=== PATIENT | female | born 1980 | race Two or more races ===

== ENCOUNTER 2025-04-30 08:47 | Outpatient (CLI) | payer OTHER, SELFPAY ==
--- OUTSIDE RECORDS SUMMARY | 2025-03-12 13:00 | XMS_ITS | Encounter Summary ---
Author Organization [facility] Address [address] [place] [address] Care Team Providers Care Signal Person Name Role Phone System, Provider Not In MD Primary Care Provider Unavailable Reason for Referral * Imaging (Routine) - Authorized Specialty Diagnoses / Procedures Referred By Ricardo t Referred To Contact Cardiology Diagnoses Broncholithiasis Procedures Echo, Adult Stress Test Beto Garner MD [address] [place] [address] Phone: tel: fax: Referral ID Status Reason Start Date Expiration Date Visits Requested Visits Authorized [id number] Authorized Perform Procedure 03/12/2025 09/11/2026 1 1 Reason for Visit * Reason Comments Follow-up Encounter Details Date Type Department Care Team (Latest Contact Info) Description 03/12/2025 1:00 PM EDT Office Visit [facility] [address] [place] [address] Beto Garner MD [address] [place] [address] Broncholithiasis (Primary Dx) Social History Tobacco Use Types Packs/Day Years Used Date Smoking Tobacco: Never Smokeless Tobacco: Never Alcohol Use Standard Drinks/Week Comments Not Currently 0 (1 standard drink = 0.6 oz pur e alcohol) PHQ-2 Answer Date Recorded Patient Health Questionnaire-2 Score 0 12/15/2024 AUDIT-C Answer Date Recorded Q1: How often do you have a drink containing alcohol? Never 03/12/2025 Q2: How many drinks containi ng alcohol do you have on a typical day when you are drinking? Patient does not drink Q3: How often do you have si x or more drinks on one occasion? Never 03/12/2025 Comments No Sex and Gender Information Value Date Recorded Sex Assigned at Not on file Legal Sex Female 11:49 AM EDT Gender Identity Not on file Sexual Orientation Not on file documented as of this encounter Last Filed Vital Signs Vital Sign Reading Time Taken Comments Blood Pressure 139/111 03/12/2025 12:53 PM EDT Provider informed Pulse 117 03/12/2025 12:47 PM EDT Temperature 36.8 C (98.3 F) 03/12/2025 12:47 PM EDT Respiratory Rate 16 03/12/2025 12:4 7 PM EDT Oxygen Saturation 96% 03/12/2025 12: 47 PM EDT Inhaled Oxygen Concentration - - Weight 97.2 kg (214 lb 4.6 oz) 03/12/2025 12:47 PM EDT Height 154.9 cm (5' 0.98 ) 03/12/2025 1 2:47 PM EDT Body Mass Index 40.51 03/12/2025 12:47 PM EDT documented in this encounter Functional Status * AUDIT-C Score Answer Date of Assessment Author 0 03/12/2025 12:44 PM EDT Consuelo Borges * Question Answer Date of Assessment Author Q1: How often do you have a drink containing alcohol? Never 03/12/2025 12:44 PM EDT Consuelo Borges Q2: How many drinks containing alcohol do you have on a typical day when you are drinking? Patient does not drink 03/12/2025 12:44 PM EDT Consuelo Borges Q3: How often do you have six or more drinks on one occasion? Never 03/12/2025 12:44 PM EDT Consuelo Borges documented as of this encounter Miscellaneous Notes * Progress Notes - Beto Garner MD - 03/12/2025 1:00 PM EDT Images from the original note were not included. HEAD, NECK[facility]ATORY [facility] Chief Complaint Bronchiolith History Of Present Illness Alek Hart is a 44 y.o. female nonsmoker who has a history of broncholithiasis that is compressing the right mainstem causing almost on 90% obstruction of the right mainstem status post 10 x 20 andressa stent placement on 12/31/2024 with significant improvement in breathing but she continues to compl ain of cough and mucus. With the thought of possibly removing the broncholith we consulted the thoracic surgeons at [facility] we did not feel the removal of the broncholith would be possible surgically. For 2nd opinion she went to the emergency room at [facility] was admitted thoracic surgery saw the patient Interventional Pulmonary bronch the patient. The recommendation was ifthey were to do surgery they would leave a rent in the right mainstem that could be a major issue thus surgery was not recommended. The pulmonary function test post stent in the right mainstem shows no evidence of obstruction FEV1 2.73 (96%). [facility] bronch: Dr Aguilar. Thoracis surgery recommendation [facility] Given location of the calcifications, surgical resection may result in defect in the right main stem bronchus. Would recommend further evaluation by interventional pulmonology for less invasive interventions to address the bronchial stenosis. Past Medical History She has a past medical history of Asthma, History of sinus problem, HTN (hypertension), Limited mobility, Lung abnormality, Migraines, Shortness of breath, and Sleep concern. She has no past medical history of Malignant hyperthermia. Surgical History She has a past surgical history that includes Cholecystectomy. Family History Family History[1] Social History She reports that she has never smoked. She has never used smokeless tobacco. She reports that she does not currently use alcohol. She reports that she does not use drugs. Review of Systems: Complete 14 point review of systems is negative except for positives documented in HPI Allergies Clonidine Home Medications Current Medications[2] Medications Ordered Prior to Encounter[3] Medications Current Scheduled Medications[4] Current Continuous Medications[5] Current PRN Medications[6] Physical Exam GENERAL: not in distress EYES: anicteric sclerae, moist conjunctivae; no lid-lag; PERRLA HENT: Atraumatic; oropharynx clear with moist mucous membranes and no mucosal ulcerations; normal hard and soft palate NECK: Trachea midline; Neck is supple, no thyromegaly or lymphadenopathy . RESP: Airway patent, good air movement, respirations non labored. Breath sounds clear to auscultation. No wheezing. CARD: RRR, without murmur, rubs, or gallop Extremities: No edema, cyanosis or clubbing. Pulses palpable +2. GI: No organomegaly or masses. Abdomen is soft, nontender and nondistended. BS present x 4 quadrants SKIN: Normal temperature, turgor and texture; no rash, ulcers or subcutaneous nodules NEURO: Aaox3 Last Recorded Vitals Blood pressure (!) 139/111, pulse (!) 117, temperature 36.8 ??C (98.3 ??F), temperature source Oral, resp. rate 16, height 1.549 m (5' 0.98 ), weight 97.2 kg (214 lb 4.6 oz), SpO2 96%. Results Radiology I reviewed the images myself to plan a procdedure. CT chest 02/28/25 [facility]: CT chest 02/23/2025 Pulmonary Arteries/Vessels: No pulmonary embolism. Right Heart Strain: No evidence of right heart strain. Pleural/Pericardial space: No pneumothorax. No pleural effusions. No pericardial effusion. Lymph Nodes: No lymphadenopathy within the chest. Lungs: Right main bronchus stent in place and patent. Redemonstration of multiple calcified right hilar lymph nodes. No airspace disease or major atelectasis Mediastinum: Otherwise unremarkable. Chest wall: No chest wall hematoma or contusion. Bones: No acute fracture within the chest. Upper Abdomen: Limited imaging of the upper abdomen is unremarkable. IMPRESSION: No pulmonary embolism. UMM stent. Assessment and Plan Alek Hart is a 44 y.o. female nonsmoker with a history of broncholithiasis causing right mainstem bronchial stenosis status post andressa 10 x 20 mm stent placement in December of 2024 After long discussion we came to a conclusion that we would remove the current stent in the right mainstem, as he thinks the stent is causing more symptoms such as fatigue weakness coughing phlegm thick mucus with small amounts of hemoptysis and more so chest pain which she thinks is debilitating. Describes it as elephant sitting on her chest. We will order her a pharmacological stress echocardiogram. To rule out cardiac cause. After the stent is removed if she becomes significantly short of breath the patient knows to call us and in that case we will decide a 3D printed stent and place it with the help over rigid bronchoscope. Spirometry after the stent is removed. Explained to her the silicone 3 D stent may fit better and not contribute as much to phlegm, hemoptysis and pain. She wants the stone removed surgically and is willing to take any amount of risk, however two surgeons at [facility] and [facility] have said that surgery is not a viable option. I personally spent a total of approximately 60 minutes on this encounter. This time includes face to face with patient, spent reviewing pertinent medical/family/social history, performing physical exam, clinically evaluating, interpreting labs/imaging, ordering necessary studies (i.e. medication, tests, procedures) and counseling patient, and discussion and/or coordination of care. This does not include time spent with patient by nursing or clerical staff. [1] Family History Problem Relation Name Age of Onset Lung cancer Maternal Grandmother Brain cancer Maternal Grandmother Heartburn Other Hyperlipidemia Other Hypertension, benign Other Other (sinus problem) Other Stroke Other Tuberculosis Other [2] Current Outpatient Medications: acetylcysteine (Mucomyst) 20 % nebulizer solution, Take 4 mL by nebulization every 4 hours., Disp: 30 mL, Rfl: 11 albuterol (Proventil) (2.5 MG/3ML) 0.083% nebulizer solution, Take 3 mL by nebulization 2 times a day., Disp: 180 mL, Rfl: 11 albuterol 108 (90 Base) MCG/ACT inhaler, Inhale 2 puffs every 4 hours by inhalation route for 30 days. (Patient taking differently: Inhale 2 puffs as needed for shortness of breath or wheezing.), Disp: , Rfl: amLODIPine (Norvasc) 5 MG tablet, Take 1 tablet by mouth daily., Disp: 30 tablet, Rfl: 0 Fjouxsu-Wajsdlitivo-Rrgcwsnref (BREZTRI AEROSPHERE IN), Inhale 2 times a day. (Patient taking differently: Inhale as needed.), Disp: , Rfl: guaiFENesin (Mucinex) 600 MG 12 hr tablet, Take 2 tablets by mouth 2 times a day. Do not crush, chew, or split., Disp: 120 tablet, Rfl: 11 norgestimate-ethinyl estradiol (Ortho Tri-Cyclen LO) 0.18/0.215/0.25 MG-25 MCG tablet, Take 1 tablet by mouth daily., Disp: , Rfl: sodium chloride 3 % nebulizer solution, Take 4 mL by nebulization 2 times a day., Disp: 240 mL, Rfl: 11 benzonatate (Tessalon Perles) 100 MG capsule, Take 1 capsule by mouth 3 times a day as needed for cough. Do not crush or chew. (Patient not taking: Reported on 03/12/2025), Disp: 30 capsule, Rfl: 0 budesonide-formoterol (Symbicort) 80-4.5 MCG/ACT inhaler, Inhale 2 puffs 2 times a day. Rinse mouthwith water after use to reduce aftertaste and incidence of candidiasis. Do not swallow. (Patient not taking: Reported on 03/12/2025), Disp: , Rfl: guaiFENesin-codeine (Robitussin-AC) 100-10 MG/5ML syrup, Take 10 mL by mouth every 4 hours as needed for cough. (Patient not taking: Reported on 03/12/2025), Disp: 240 mL, Rfl: 0 [3] Current Outpatient Medications on File Prior to Visit Medication Sig Dispense Refill acetylcysteine (Mucomyst) 20 % nebulizer solution Take 4 mL by nebulization every 4 hours. 30 mL 11 albuterol (Proventil) (2.5 MG/3ML) 0.083% nebulizer solution Take 3 mL by nebulization 2 times a day. 180 mL 11 albuterol 108 (90 Base) MCG/ACT inhaler Inhale 2 puffs every 4 hours by inhalation route for 30 days. (Patient taking differently: Inhale 2 puffs as needed for shortness of breath or wheezing.) amLODIPine (Norvasc) 5 MG tablet Take 1 tablet by mouth daily. 30 tablet 0 Rgqteve-Aeqleolkwya-Biyksffhmm (BREZTRI AEROSPHERE IN) Inhale 2 times a day. (Patient taking differently: Inhale as needed.) guaiFENesin (Mucinex) 600 MG 12 hr tablet Take 2 tablets by mouth 2 times a day. Do not crush, chew, or split. 120 tablet 11 norgestimate-ethinyl estradiol (Ortho Tri-Cyclen LO) 0.18/0.215/0.25 MG-25 MCG tablet Take 1 tabletby mouth daily. sodium chloride 3 % nebulizer solution Take 4 mL by nebulization 2 times a day. 240 mL 11 benzonatate (Tessalon Perles) 100 MG capsule Take 1 capsule by mouth 3 times a day as needed for cough. Do not crush or chew. (Patient not taking: Reported on 03/12/2025) 30 capsule 0 budesonide-formoterol (Symbicort) 80-4.5 MCG/ACT inhaler Inhale 2 puffs 2 times a day. Rinse mouth with water after use to reduce aftertaste and incidence of candidiasis. Do not swallow. (Patient nottaking: Reported on 03/12/2025) guaiFENesin-codeine (Robitussin-AC) 100-10 MG/5ML syrup Take 10 mL by mouth every 4 hours as neededfor cough. (Patient not taking: Reported on 03/12/2025) 240 mL 0 No current facility-administered medications on file prior to visit. [4] [5] [6] documented in this encounter Plan of Treatment Upcoming Encounters Date Type Department Care Team (Late st Contact Info) Description 05/04/2025 2:30 PM EDT Appointment Cardiac Imaging [address] [place] [address] Scheduled Orders Name Type Priority Associated Diagnoses Order Schedule Pulmonary function testing PFT Routine Broncholithiasis 1 Occurrences starting 03/12/2025 until 03/12/2026 Echo, Adult Stress Test Stress Echocardiography Routine Broncholithiasis Expected: 03/12/2025 (Approximate), Expires: 03/12/2026 documented as of this encounter Goals Goal Patient Goal Type Associated Problems Recent Progress Patient-Stated? Author Autogenerat ed Goal Care Plan Autogenerated Problem No Lorena Weber documented as of this encounter Visit Diagnoses Diagnosis Broncholithiasis- Primary Other diseases of lung, not elsewhere classified documented in this encounter Additional Health Concerns Active Problems Noted Date Diagnosed Date Autogenerated Problem 03/12/2025 Assessment Noted Time A fall risk assessment has been complete d for the patient 03/12/2025 12:44 PM EDT A Body Mass Index follow-up plan has been documented for the patient 02/13/2025 1:58 PM EDT documented as of this encounter Care Teams Signal Person Relationship Specialty Start Date End Date System, Provider Not In, MD [address] [place] [address] PCP - General Family Medicine 12/15/24 documented as of this encounter
--- OUTSIDE RECORDS SUMMARY | 2025-03-24 07:33 | XMS_ITS | Encounter Summary ---
Author Organization Healthcare Address [address] [id number] Care Team Providers Care Medical Physicist Name Role Phone System, Provider Not In MD Primary Care Provider Unavailable Reason for Referral * Imaging (Routine) - Closed Specialty Diagnoses / Procedures Referred By Ricardo iyer Referred To Contact Gastroenterology Diagnoses Broncholithiasis Procedures Bronchoscopy w Stent Removal, w Beto De Santiago MD [address] [place] [address] Phone: tel: fax: Referral ID Status Reason Start Date Expiration Date V isits Requested Visits Authorized [id number] Closed Specialty Services Required 03/12/2025 09/11/2026 1 1 Reason for Visit * Imaging (Routine) - Closed Specialty Diagnoses / Procedures Referred By Ricardo iyer Referred To Contact Gastroenterology Diagnoses Broncholithiasis Procedures Bronchoscopy w Stent Removal, w Beto De Santiago MD [address] [place] [address] Phone: tel: fax: Referral ID Status Reason Start Date Expiration Date V isits Requested Visits Authorized [id number] Closed Specialty Services Required 03/12/2025 09/11/2026 1 1 Encounter Details Date Type Department Care Team (Latest Contact Info) Description 03/24/2025 7:33 AM EDT - 03/24/2025 11:59 PM EDT Hospital Encounter [facility] [address] [place] [address] Beto Garner MD [address] [place] [address] Megan Tucker, RN Broncholithiasis Discharge Disposition: Home or Self Care Social History Tobacco Use Types Packs/Day Years [...] Sign Reading Time Taken Comments Blood Pressure 118/80 03/24/2025 12:30 PM EDT Pulse 75 03/24/2025 12:30 PM EDT Temperature 36.4 C (97.6 F) 03/24/2025 9:47 AM EDT Respiratory Rate 8 03/24/2025 12:30 PM EDT Oxygen Saturation 97% 03/24/2025 12:30 PM EDT Inhaled Oxygen Concentration - - Weight 97.3 kg (214 lb 8.1 oz) 03/24/2025 7:58 A M EDT Height 157.5 cm (5' 2 ) 03/24/2025 7:58 AM EDT Body Mass Index 39.23 03/24/2025 7:58 AM EDT documented in this encounter Medications at Time of Discharge amLODIPine (Norvasc) 5 MG tablet Take 1 tablet by mouth daily. 30 tablet 02/24/2025 acetylcysteine (Mucomyst) 20 % nebulizer solution Take 4 mL by nebulization every 4 hours. 30 mL 11 12/31/2024 albuterol (Proventil) (2.5 MG/3ML) 0.083% nebulizer solution Take 3 mL by nebulization 2 times a day. 180 mL 11 12/31/2024 albuterol 108 (90 Base) MCG/ACT inhalerIndicatio ns:Broncholithia sis,Subacute cough Inhale 2 puffs every 4 hours by inhalation route for 30 days. 11/24/2024 benzonatate (Tessalon Perles) 100 MG capsule Take 1 capsule by mouth 3 times a day as needed for cough. Do not crush or chew. 30 capsule 01/08/2025 Budeson-Glycopyr rol-Formoterol (BREZTRI AEROSPHERE IN)Indications:B roncholithiasis, Subacute cough Inhale 2 times a day. budesonide-formo terol (Symbicort) 80-4.5 MCG/ACT inhalerIndicatio ns:Broncholithia sis,Subacute cough Inhale 2 puffs 2 times a day. Rinse mouth with water after use to reduce aftertaste and incidence of candidiasis. Do not swallow. guaiFENesin (Mucinex) 600 MG 12 hr tablet Take 2 tablets by mouth 2 times a day. Do not crush, chew, or split. 120 tablet 11 12/31/2024 guaiFENesin-code ine (Robitussin-AC) 100-10 MG/5ML syrup Take 10 mL by mouth every 4 hours as needed for cough. 240 mL 12/16/2024 norgestimate-eth inyl estradiol (Ortho Tri-Cyclen LO) 0.18/0.215/0.25 MG-25 MCG tablet Take 1 tablet by mouth daily. sodium chloride 3 % nebulizer solution Take 4 mL by nebulization 2 times a day. 240 mL 11 12/31/2024 documented as of this encounter Miscellaneous Notes * H&P - Beto Garner MD - 03/24/2025 9:00 AM EDT Pre-procedure H&P Requesting Provider: Beto Garner MD Pre Procedure H and P 03/24/2025 Location: Endoscopy Brief H and P: Alek Hart is a 44 y.o. female with pmhx of severe persistent asthma on Trelegy, never smoker, recurrent bronchitis, chronic cough/sinusitis. We are seeing the patient as a consult, on the requestof Carly Piper NP for concern of bronchial obstruction. Since August has noted progressively worse dyspnea and cough. She is now unable to lie flat and dyspneic with walking only short distances and speaking. Last asthma exacerbation reuqiring steroids and abx was last week. currently on triple therapy for asthma treatment and pending restart of biologic. Denies fever, chills. Baseline cough, shortness of breath. Stable weight and appetite. She was exposed to TB in [place] to due maternal grandmother with TB. Grandmother also with hx of lung cancer. She is a never smoker. We performed a bronchoscopy on 12/31/24, there was no visible broncholith but there was granulation tissue and a stent was placed 10x20 mm andressa stent. She coughs a lot, but states her breathing is much better and is able to speak in full sentences. Has some frothy, white expectoration. Denies chest pain. . Past Medical History Past Medical History[1] 14 point ROS normal except:A comprehensive review of systems was negative. Medications: Prior to Admission medications Medication Sig Start Date End Date Taking? Authorizing Provider acetylcysteine (Mucomyst) 20 % nebulizer solution Take 4 mL by nebulization every 4 hours. 12/31/24 Tiffanie Aguilar MD albuterol (Proventil) (2.5 MG/3ML) 0.083% nebulizer solution Take 3 mL by nebulization 2 times a day. 12/31/24 Tiffanie Aguilar MD albuterol 108 (90 Base) MCG/ACT inhaler Inhale 2 puffs every 4 hours by inhalation route for 30 days. Patient taking differently: Inhale 2 puffs as needed for shortness of breath or wheezing. 11/24/24 Provider, Historical amLODIPine (Norvasc) 5 MG tablet Take 1 tablet by mouth daily. 02/24/25 Fausto Calderón, DO benzonatate (Tessalon Perles) 100 MG capsule Take 1 capsule by mouth 3 times a day as needed for cough. Do not crush or chew. Patient not taking: Reported on 03/12/2025 01/08/25 Beto Garner MD Ifmiyrl-Zqobhnxdikd-Ipdkmlckcz (BREZTRI AEROSPHERE IN) Inhale 2 times a day. Patient taking differently: Inhale as needed. Provider, Historical budesonide-formoterol (Symbicort) 80-4.5 MCG/ACT inhaler Inhale 2 puffs 2 times a day. Rinse mouth with water after use to reduce aftertaste and incidence of candidiasis. Do not swallow. Patient not taking: Reported on 03/12/2025 Provider, Historical guaiFENesin (Mucinex) 600 MG 12 hr tablet Take 2 tablets by mouth 2 times a day. Do not crush, chew, or split. 12/31/24 Tiffanie Aguilar MD guaiFENesin-codeine (Robitussin-AC) 100-10 MG/5ML syrup Take 10 mL by mouth every 4 hours as neededfor cough. Patient not taking: Reported on 03/12/2025 12/16/24 Beto Garner MD norgestimate-ethinyl estradiol (Ortho Tri-Cyclen LO) 0.18/0.215/0.25 MG-25 MCG tablet Take 1 tabletby mouth daily. Provider, Historical sodium chloride 3 % nebulizer solution Take 4 mL by nebulization 2 times a day. 12/31/24 Tiffanie Aguilar MD Anticoagulation/ASA: none Last dose: not applicable Allergies: Clonidine Social history: Reviewed and non contributory Family history: Reviewed and non contributory Results Coags: No results found for: INR , PT1 , APTT , HPRN , CLFGN CBC: WBC Count Date Value Ref Range Status 02/23/2025 15.08 (H) 3.70 - 10.30 10*3/uL Final HGB Date Value Ref Range Status 02/23/2025 13.6 11.2 - 15.7 g/dL Final HCT Date Value Ref Range Status 02/23/2025 40.5 34.0 - 45.0 % Final RBC Count Date Value Ref Range Status 02/23/2025 4.73 3.90 - 5.20 10*6/uL Final MCV Date Value Ref Range Status 02/23/2025 86 79 - 98 fL Final MCH Date Value Ref Range Status 02/23/2025 28.8 26.0 - 32.0 pg Final MCHC Date Value Ref Range Status 02/23/2025 33.6 30.7 - 35.5 g/dL Final RDW Date Value Ref Range Status 02/23/2025 13.4 11.5 - 14.5 % Final MPV Date Value Ref Range Status 02/23/2025 9.4 8.8 - 12.5 fL Final nRBC Date Value Ref Range Status 02/23/2025 0.0 <=0.0 per 100 WBCs Final Neutrophils % Date Value Ref Range Status 02/23/2025 69 % Final Lymphocytes % Date Value Ref Range Status 02/23/2025 28 % Final Monocytes % Date Value Ref Range Status 02/23/2025 3 % Final Eosinophils % Date Value Ref Range Status 02/23/2025 0 % Final Basophils % Date Value Ref Range Status 02/23/2025 0 % Final BMP: Sodium, Plasma Date Value Ref Range Status 02/23/2025 138 136 - 145 mmol/L Final Potassium, Plasma Date Value Ref Range Status 02/23/2025 3.8 3.6 - 4.9 mmol/L Final Chloride, Plasma Date Value Ref Range Status 02/23/2025 105 97 - 107 mmol/L Final BUN, Plasma Date Value Ref Range Status 02/23/2025 9 7 - 21 mg/dL Final CO2, Plasma Date Value Ref Range Status 02/23/2025 20 (L) 22 - 29 mmol/L Final Creatinine, Plasma Date Value Ref Range Status 02/23/2025 0.90 0.60 - 1.10 mg/dL Final Glucose, Plasma Date Value Ref Range Status 02/23/2025 102 (H) 74 - 99 mg/dL Final Last Recorded Vitals Visit Vitals OB Status Having periods Smoking Status Never Physical Exam GENERAL: not in distress EYES: anicteric sclerae, PERRLA HENT: Oropharynx clear with moist mucous membranes and no mucosal ulcerations NECK/Lymph: Trachea midline; No thyromegaly or lymphadenopathy . RESP: Good air movement, Breath sounds clear to auscultation. No wheezing. CARD: RRR, without murmur, rubs, or gallop Extremities: No edema, cyanosis or clubbing. GI: No organomegaly or masses. Abdomen is soft, nontender and nondistended. BS present x 4 quadrants SKIN: No rash, ulcers or subcutaneous nodules NEURO: Alert and oriented, moves all extremeties, reflexes present and symmetrical, no focal deficit Impression/indication for procedure: Alek Hart is a 44 y.o. female with a broncholith and significant narrowing of the UMM , no broncolith was visible but due to the narrowing we placed a ANDRESSA 10x20 mm stent. She is breathing betterbut has cough and frothy expectoration. [facility] for [facility] thoracic [facility] for removal [facility]olith[facility]. Due to coughing, and chest pain she would like to have the stent removed. We talked in length that she will become short of breath like before if the stent were to come out. She would like to have the stent removed and if she gets more short of breath we will plan on a silicone 3 D Y stent. Procedure to be performed: Bronchoscopy airway examination wash and stent removal Side: Right Consent: yes [1] Past Medical History: Diagnosis Date Asthma History of sinus problem HTN (hypertension) Limited mobility shortness of breath Lung abnormality Migraines Shortness of breath Sleep concern * Dell Rubalcava [facility] - 03/24/2025 8:16 AM EDT Images from the original note were not included. 61 After a Bronchoscopy Home care ? Getting home: We will give you a medicine that makes you sleepy. You may not drive or ride home alone. Someone must be with you until you get home. ? Driving: Do not drive or use dangerous equipment for 24 hours. ? Eating and drinking: Your throat will be numb after treatment. Do not eat or drink until the numbness goes away. This often takes ?? to 1 hours. ? Sore throat: Your throat may be sore or hoarse for the next day or 2. ? Fever: You may have a mild fever tonight. If your temp is over 100?F, you may take qsfq-gdl-pxweuay Tylenol. ? Blood in the mouth: For a few days, you may cough up a little blood or have a little blood in your spit. This is normal. Call 911 right away if you have any of the following ? Shortness of breath Call your doctor if you have any of the following These may be related to the treatment and need medical attention. If you do not tell your doctor, the problem may get worse. ? Sore throat for more than 24 hours ? Fever for more than 24 hours ? Coughing up blood - more than 2 tablespoons between now and tomorrow morning ? Pain in the chest ? Breathing problems Our contact information ? For Adult Pulmonary, call . Nights and weekends, call and ask for the finisher [employer] consumer affairs manager. ? For the Transplant Service, call . Nights and weekends, call . ? For Pediatric Pulmonary, call and ask for the pediatric attending consumer affairs manager. ? For Otolaryngology, call . Nights and weekends, call [phone] and ask for thesurgical resident consumer affairs manager. * Sydni Juarez - 03/24/2025 8:15 AM EDT Images from the original note were not included. [id number] Anesthesia: General Anesthesia You?re due to have surgery. During surgery, you?ll be given medicine called anesthesia or anesthetic. This will keep you comfortable and pain-free. Your anesthesia provider will use general anesthesia . You are watched continuously during your procedure by your anesthesia provider. What is general anesthesia? General anesthesia puts you into a state like deep sleep. It goes into the bloodstream (IV anesthetics), into the lungs (gas anesthetics),or both. You feel nothing during the procedure. You won't remember it either. During the procedure, the anesthesia provider monitors you continuously. They trackyour heart rate and rhythm, blood pressure, breathing, and blood oxygen. ? IV anesthetics. IV anesthetics are given through an IV (intravenous) line in your arm. They?re often given first. This is so you're asleep before a gas anesthetic is started. Some kinds of IV anesthetics ease pain. Others relax you. Your healthcare provider will decide which kind is best in your case. ? Gas anesthetics. Gas anesthetics are breathed into the lungs. They're often used to keep you asleep. They can be given through a face mask. Or they can be given through a tube placed in your voice box (larynx) or breathing tube (trachea). o Face mask. Your anesthesia provider will most likely place the face mask over your nose and mouthwhile you?re still awake. You?ll breathe oxygen through the mask as your IV anesthetic is started. Gas anesthetic may be added through the mask. o Tube in the larynx or trachea. The tube will be inserted into your throat after you?re asleep. Anesthesia tools and medicines You will likely have: ? IV anesthetics. These are put into an IV line into your bloodstream. ? Gas anesthetics. You breathe these anesthetics into your lungs. Then they pass into your bloodstream. ? Pulse oximeter. This is a small clip that's attached to the end of your finger. It measures your blood oxygen level. ? Electrocardiography leads (electrodes). These are small sticky pads that are placed on your chest. They record your heart rate and rhythm. ? Blood pressure cuff. This reads your blood pressure. Risks and possible complications General anesthesia has some risks. These include: ? Breathing problems ? Upset stomach (nausea) and vomiting ? Sore throat or hoarseness (usually temporary) ? Allergic reaction to the anesthetic ? Irregular heartbeat (rare) ? Cardiac arrest (rare) Anesthesia safety ? Follow any directions you're given for not eating or drinking before your procedure. ? Tell your healthcare provider what medicines you take. This includes prescription and vdst-abh-xwybole medicines. It also includes vitamins, herbs, and other supplements. You'll be asked when thosewere last taken. ? Have a trusted adult drive you home after the procedure. ? For the first 24 hours after your surgery: o Don't drive or use heavy equipment. o Don't make important decisions or sign legal documents. If important decisions or signing legal documents is necessary during the first 24 hours after surgery, have a trusted family member or spouse act on your behalf. o Don't drink alcohol. o Have a responsible adult stay with you. They can watch for problems and help keep you safe. Last Reviewed Date: 2023 00:00:00 ?? [id number] The [employer]. All rights reserved. This information is not intended as a substitute for professional medical care. Always follow your healthcare professional's instructions. documented in this encounter Plan of Treatment Upcoming Encounters Date Type Department Care Team (Late st Contact Info) Description 05/04/2025 2:30 PM EDT Appointment Cardiac Imaging [address] [place] [address] documented as of this encounter Goals Goal Patient Goal Type Associated Problems Recent Progress Patient-Stated? Author Autogenerat ed Goal Care Plan Autogenerated Problem No Lorena Weber documented as of this encounter Procedures Procedure Name Priority Date/Time Associated Diagnosis Comments BRONCHOSCOPY Routine 03/24/2025 9:38 AM EDT Broncholithiasis POCT , URINE Routine 03/24/2025 8:14 AM EDT documented in this encounter Results * Bronchoscopy w Stent Removal, w Flouro (03/24/2025 9:38 AM EDT) Anatomical Region Laterality Modality Endoscopy Narrative 03/24/2025 9:35 AM EDT Table formatting from the original result was not included. Indication Broncholithiasis causing extrinsic compression and narrowing of the UMM Preprocedure A history and physical has been performed, and patient medication allergies have been reviewed. The patient's tolerance of previous anesthesia has been reviewed. The risks and benefits of the procedure and the sedation options and risks were discussed with the patient. All questions were answered and informed consent obtained. Anesthesia/Sedation Medications See anesthesia record for anesthesia administered medications. Details of the Procedure The patient underwent general anesthesia, which was administered by an anesthesia professional. The patient's blood pressure, heart rate, level of consciousness, oxygen saturation, respirations and ETCO2 were monitored throughout the procedure. The patient experienced no blood loss. The scope was introduced through the endotracheal tube. The procedure was not difficult. The patient tolerated the procedure well. There were no apparent adverse events. Fluoroscopy time: 0 min, and 0 seconds. Findings The main mri and left lung appeared normal. Right side has a Andressa stent in good position, the lumen was 50 precent occluded with thick secretion which was removed with some effort. The RUL and the RBI were patent. Foreign body in the right main stem. The stent in the UMM was grasped with a forceps and removed easily. The UMM narrowed after removal of the stent. The lumen was 25 percent patent. Benign-appearing stenosis with greater than 75% obstruction in the right main stem; cre balloon dilated x2 from starting diameter 8 mm to an ending diameter of 10 mm and a length of 30 mm. Dilation resulted in an improvement. 51-75% obstruction remained after intervention. The balloon dilatation only temporarily keeps the airway open.. Specimens No specimens were documented in this log. Events Procedure Events Event Event Time ENDO SCOPE IN TIME 03/24/2025 9:07 AM ENDO SCOPE OUT TIME 03/24/2025 9:24 AM Staff Staff Role Megan Tucker, RN Endo Nurse Shira Lucero Endo Computer Engineer Naila Perla, HEAD BUTLER Beto Gonzales MD Proceduralist Impression Overall Impression: UMM stent was removed The UMM is 25 % open post stent removal Post Procedure Diagnosis None Recommendation Follow-up: with me If she is more short of breath , we will plan for a 3D stent. Attestation I was present for the entire procedure Billing Codes See procedure report details above. [id number] - Dilation [id number] - Foreign body removal GC - Service has been performed in part by a resident/fellow under the direction of a teaching physician Beto Garner MD GI PROCEDURE ORDERABLES Final Result * POCT , URINE (03/24/2025 8:14 AM EDT) POCT Test, Urine Negative Males and Non- Females: Negative 03/24/2025 8:22 AM EDT [facility] Care Consultant ID Jerome Bob 03/24/2025 8:22 AM EDT [facility] Device ID [id number] 03/24/2025 8:22 AM EDT [facility] Urine Urine specimen obtained by clean catch procedure / Unknown 03/24/2025 8:14 AM EDT 03/24/2025 8:22 AM EDT Beto Garner MD LAB POINT OF CARE TE ST DOCKED DEVICE UNSOLICITED RESULTS Final Result [facility] [address] [place] [address] documented in this encounter Visit Diagnoses Diagnosis Broncholithiasis Other diseases of lung, not elsewhere classified documented in this encounter Administered Medications Inactive Administered Medications - up to 3 most recent administrations Medication Order MAR Action Action Date Dose Rate Site acetaminophen (Tylenol) tablet 650 mg 650 mg, Oral, Once, 1 dose, On Sun03/24/25 at 1100, Routine, Recovery (Phase I only) Given 03/24/2025 10:17 AM EDT 650 mg fentaNYL (Sublimaze) injection 25 mcg 25 mcg, Intravenous, Once, 1 dose, On Sun03/24/25 at 1215, Routine Given 03/24/2025 11:33 AM EDT 25 mcg ipratropium-albuterol (Duo-Neb) 0.5-2.5 mg/3 mL nebulizer solution - Pyxis Override Pull 1 dose, Starting on Sun03/24/25 at 0945, Until Sun03/24/25 at 0949 Given 03/24/2025 9:49 AM EDT 3 mL lactated Ringer's infusion 50 mL/hr, Intravenous, Once, 1 dose, On Sun03/24/25 at 0915, Routine New Bag 03/24/2025 8:18 AM EDT 50 mL/hr 50 mL/hr documented in this encounter Additional Health Concerns Active Problems Noted Date Diagnosed Date Autogenerated Problem 03/12/2025 Assessment Noted Time A fall risk assessment has been complete d for the patient 03/12/2025 12:44 PM EDT A Body Mass Index follow-up plan has been documented for the patient 02/13/2025 1:58 PM EDT documented as of this encounter Care Teams Medical Physicist Relationship Specialty Start Date End Date System, Provider Not In, [place] [address] PCP - General Family Medicine 12/15/24 documented as of this encounter
--- OUTSIDE RECORDS SUMMARY | 2025-03-24 08:51 | XMS_ITS | Encounter Summary ---
Author Organization Healthcare Address [address] [id number] Care Team Providers Care Magazine Worker Name Role Phone System, Provider Not In MD Primary Care Provider Unavailable Encounter Details Date Type Department Care Team ([facility] st Contact Info) Description 03/24/2025 8:51 AM EDT Anesthesia Event [facility] [address] [place] [address] Cal Franklin MD [address] [place] [address] Anesthesia Record Procedure Summary Procedure Name Responsible Anesthesiologist Anesthesia Start Time Anesthesia Stop Time BRONCHOSCOPY Cal Franklin MD 03/24/25 0851 0948 Events Date Time Event Comment 03/24/2025 0841 0851 An Start The patient was reevaluated immediately before sedation and remains eligible for anesthesia plan. 0851 An Start Data 0851 In Room 0858 An Induction The patient was reevaluated immediately before moderate or deep sedation use and before anesthesia induction. 0859 An Intubation 0905 Anesthesia Ready 0907 Proc Start 0924 Proc Fin 0933 An Extubation 0938 Out of Room 0938 an stop data 0947 Handoff to Receiving I compl eted my handoff to the receiving clinician during which we: 1. Identified the patient 2. Identified the responsible provider 3. Reviewed the pertinent medical history 4. Discussed the surgical course 5. Reviewed intra-op anesthesia management and issues during anesthesia 6. Set expectations for post-procedure period 7. Allowed opportunity for questions and acknowledgement of understanding. 0948 An Stop Meds Name Total lidocaine PF (Xylocaine-MPF) 2% 100 mg propofol (Diprivan) injection 10 mg/mL 2 00 mg rocuronium (ZeMuron) injection 10 mg/mL 50 mg ondansetron (Zofran) injection 2 mg/mL 4 mg sugammadex (Bridion) injection 100 mg/mL 200 mg propofol (Diprivan) infusion 10 mg/mL 36 9.74 mg lactated Ringer's infusion 500 mL * Agents No agents on file. * Blood No blood administrations on file. Lines, Drains, and Airways Type Details Placement Removal Peripheral IV Placement Date: 03/24/25; Placement Time: 805; Catheter Size: 20 G; Orientation: Posterior, Right; Location: Hand; Site Prep: Alcohol; Inserted by: Susan Valdovinos; Insertion Attempts: 1; Patient Tolerance: Tolerated well; Removal Date: 03/26/25; Removal Time: 4603/24/25805 by Sydni Rubalcava 03/26/2546 by Discharge Provider, Automatic ETT Placement Date: 03/24/25; Placement Time: 858 (created via procedure documentation); Technique: Direct laryngoscopy; Type: ETT - single; Single Lumen Tube Size: 8.5 mm; Cuffed: Yes; Laryngoscope: Allyson; Blade Size: 3; Location: Oral; Grade View: Grade I; Insertion Attempts: 1; Placement Verification: Auscultation, Capnometry; Airway Comments: dR. Arriaza places ETT x1 attempt. Atraumatic. No change to dentition. ; Placed by: [email or web address]; Removal Date: 03/24/25; Removal Time: 93203/24/25858 by Naila Perla CRNA 03/24/25932 by Naila Perla CRNA documented in this encounter Social History Tobacco Use Types Packs/Day Years [...] on file documented as of this encounter Miscellaneous Notes * Anesthesia Postprocedure Evaluation - Naila Perla CRNA - 03/24/2025 9:50 AM EDT Patient: Alek Hart Anesthesia Type: general Vitals Value Taken Time BP 112/74 03/24/25 09:47 Temp 36.4 ??C (97.6 ??F) 03/24/25 09:47 Pulse 102 03/24/25 09:49 Resp 12 03/24/25 09:49 SpO2 100 % 03/24/25 09:49 Vitals shown include unfiled device data. Anesthesia Post Evaluation Patient location during evaluation: PACU Patient participation: complete - patient participated Level of consciousness: awake Pain management: adequate (pain score 0-3) Airway patency: natural airway Cardiovascular status: acceptable and hemodynamically stable Respiratory status: acceptable and blow-by oxygen Hydration status: acceptable Nausea/Vomiting: No Comments: Severe cough; Dr Franklin ordered duoneb No notable events documented. * Anesthesia Procedure Notes - Naila Perla CRNA - 03/24/2025 9:06 AM EDT Associated Order(s): Airway Airway Date/Time: 03/24/2025 8:59 AM Reason: elective Airway not difficult General Information and Staff Patient location during procedure: OR CLINIC ASSISTANT: Kristen Irwin CRNA Performed: CLINIC ASSISTANT Patient Condition Indications for airway management: anesthesia Patient position: sniffing Final Airway Details Final airway type: endotracheal airway Successful airway: ETT Cuffed: yes Successful intubation technique: direct laryngoscopy Adjuncts used in placement: intubating stylet Endotracheal tube insertion site: oral Blade: Allyson Blade size: #3 ETT size (mm): 8.5 Cormack-Lehane Classification: grade I - full view of glottis Placement verified by: chest auscultation and capnometry Measured from: lips Additional Comments dR. Arriaza places ETT x1 attempt. Atraumatic. No change to dentition. * Anesthesia Preprocedure Evaluation - Cal Franklin MD - 03/24/2025 8:14 AM EDT Images from the original note were not included. No anesthesia staff entered. Patient: Alek Hart is a 44 y.o. female with body mass index is 39.23 kg/m?? (pended). who presents with No Principal Problem: There is no principal problem currently on the Problem List. Please update the Problem List and refresh., now for Bronchoscopy with removal of bronchial stent. PMHx of severe persistent asthma, recurrent bronchitis, concern for broncholith. She has stent placed for worsening shortness of breath which has resolved however she is considering surgery with [facility] and they will not proceed with current stent in place. Bronch with stent placement 12/31/24 with no complications, grade I view with video laryngoscopy. Procedure Information Date/Time: 03/24/25 0900 Scheduled providers: Beto Garner MD; Megan Tucker RN Procedure: BRONCHOSCOPY Location: [facility] Relevant Problems Cardio (+) Dyspnea (+) Hypertensive disorder GI (+) Obesity Neuro/Psych (+) Headache Pulmonary (+) Asthmatic bronchitis (+) Cough (+) Mild persistent asthma with exacerbation (+) Severe persistent asthma with (acute) exacerbation ALLERGIES Allergies[1] NPO STATUS Date of Last Liquid: 03/23/25 Time of Last Liquid: 2029 Date of Last Solid: 03/23/25 Time of Last Solid: 2029 Past Medical History[2] AIRWAY HISTORY Airway Detailed Review Displaying the 20 most recent records Date Difficult Airway Blade Size ETT Size C-L Class Final Type Intubation Method 03/04/25 - - - - - - 12/31/24 No 3 8.5 grade I - full view of glottis endotracheal airway video laryngoscopy MEDICATIONS Outpatient Current Outpatient Medications Medication Instructions acetylcysteine (Mucomyst) 20 % nebulizer solution 4 mL, Nebulization, Every 4 hours albuterol (PROVENTIL) 2.5 mg, Nebulization, 2 times daily albuterol 108 (90 Base) MCG/ACT inhaler Inhale 2 puffs every 4 hours by inhalation route for 30 days. amLODIPine (NORVASC) 5 mg, Oral, Daily benzonatate (TESSALON PERLES) 100 mg, Oral, 3 times daily PRN, Do not crush or chew. Gdroezk-Byuuzyhgugl-Zwarusvkva (BREZTRI AEROSPHERE IN) 2 times daily budesonide-formoterol (Symbicort) 80-4.5 MCG/ACT inhaler 2 puffs, ZZ 2 times daily RT guaiFENesin (MUCINEX) 1,200 mg, Oral, 2 times daily, Do not crush, chew, or split. guaiFENesin-codeine (Robitussin-AC) 100-10 MG/5ML syrup 10 mL, Oral, Every 4 hours PRN norgestimate-ethinyl estradiol (Ortho Tri-Cyclen LO) 0.18/0.215/0.25 MG-25 MCG tablet 1 tablet, Daily sodium chloride 3 % nebulizer solution 4 mL, Nebulization, 2 times daily Scheduled Current Scheduled Medications[3] PRNs Current PRN Medications[4] SURGICAL HX: Surgical History[5] SOCIAL HX: Social History[6] OBJECTIVE DATA LABS Lab Results Component Value Date WBC 15.08 (H) 02/23/2025 HGB 13.6 02/23/2025 HCT 40.5 02/23/2025 MCV 86 02/23/2025 PLT 370 (H) 02/23/2025 Lab Results Component Value Date CALCIUM 8.9 02/23/2025 BUN 9 02/23/2025 CREATININE 0.90 02/23/2025 BCR 10 02/23/2025 NA 138 02/23/2025 K 3.8 02/23/2025 CL 105 02/23/2025 CO2 20 (L) 02/23/2025 Type and Screen No results found for: ABO No results found for: HGBA1C Lab Results Component Value Date GLUCOSE 102 (H) 02/23/2025 ABG No results found for: PHART , ABC2VOL , PO2ART , SO2ART , BEART , OSR9TBU , HCTART , SODIUMART , POTASSIUMART , POCTCL , POCGLU , IONCALART , LACTATE No results found for: PH , PCO2 , PO2 , H5HSAEBG , BASEEXC , HCTSYR , KSYR , CLSYR , GLUSYR , CAION , LACTATE ECHO No echocardiogram results found for the past 12 months PFTs FEV1 PRE (L) Date/Time Value 02/05/2025 1449 2.73 FEV1 PRED (no units) Date/Time Value 02/05/2025 1449 2.83 TMQ2CHE (L) Date/Time Value 02/05/2025 1449 3.47 FVC PRED (no units) Date/Time Value 02/05/2025 1449 3.47 BP Readings from Last 5 Encounters: 03/24/25 (!) 143/93 03/12/25 (!) 139/111 02/24/25 (!) 170/119 02/13/25 (!) 144/105 02/05/25 (!) 157/104 Physical Exam Airway Mallampati: II Mouth opening: normal Neck ROM: full Cardiovascular Rhythm: regular Rate: normal Dental - normal exam Pulmonary Breath sounds clear to auscultation Neurological Oriented: normal to time, normal to place and normal to person and oriented to person, place and time Skin Musculoskeletal Extremities Anesthesia Plan ASA 3 Plan was reviewed with: attending Anesthesia technique(s) discussed with the patient/family: general Anesthesia plan agreed upon was: general Anesthetic plan and risks discussed with patient. Use of blood products discussed with patient who consented to blood products. ROS Anesthesia: history of previous anesthesia. Does not have a history of anesthetic complications. Cardiovascular: hypertension: Respiratory: asthma (Previous stent placed for obstruction - will remove today in preparation for possible surgery with [facility]): poorly controlled. [1] Allergies Allergen Reactions Clonidine Other - please document in the comment field Caused blood pressure to go high [2] Past Medical History: Diagnosis Date Asthma History of sinus problem HTN (hypertension) Limited mobility shortness of breath Lung abnormality Migraines Shortness of breath Sleep concern [3] [4] [5] Past Surgical History: Procedure Laterality Date CHOLECYSTECTOMY [6] Social History Tobacco Use Smoking status: Never Smokeless tobacco: Never Vaping Use Vaping status: Never Used Substance Use Topics Alcohol use: Not Currently Drug use: Never documented in this encounter Plan of Treatment Upcoming Encounters Date Type Department Care Team (Late st Contact Info) Description 05/04/2025 2:30 PM EDT Appointment Cardiac Imaging [address] [place] [phone] documented as of this encounter Goals Goal Patient Goal Type Associated Problems Recent Progress Patient-Stated? Author Autogenerat ed Goal Care Plan Autogenerated Problem No Lorena Weber documented as of this encounter Procedures Procedure Name Priority Date/Time Associated Diagnosis Comments PB ANESTHESIA PLACEHOLDER Routine 03/24/2025 8:59 AM EDT FL AN ELECTIVE ENDOTRACHEAL AIRWAY Routine 03/24/2025 8:59 AM EDT documented in this encounter Results * FL AN ELECTIVE ENDOTRACHEAL AIRWAY, PB ANESTHESIA PLACEHOLDER (03/24/2025 8:59 AM EDT) Narrative Naila Perla CRNA - 03/24/2025 8:59 AM EDT Naila Perla CRNA 03/24/2025 9:07 AM Airway Date/Time: 03/24/2025 8:59 AM Reason: elective Airway not difficult General Information and Staff Patient location during procedure: OR CLINIC ASSISTANT: Kristen Irwin CRNA Performed: CLINIC ASSISTANT Patient Condition Indications for airway management: anesthesia Patient position: sniffing Final Airway Details Final airway type: endotracheal airway Successful airway: ETT Cuffed: yes Successful intubation technique: direct laryngoscopy Adjuncts used in placement: intubating stylet Endotracheal tube insertion site: oral Blade: Allyson Blade size: #3 ETT size (mm): 8.5 Cormack-Lehane Classification: grade I - full view of glottis Placement verified by: chest auscultation and capnometry Measured from: lips Additional Comments dR. Arriaza places ETT x1 attempt. Atraumatic. No change to dentition. us Naila Perla CRNA ANESTHESIA ORDERABLES Sailaja l Result documented in this encounter Visit Diagnoses Not on filedocumented in this encounter Administered Medications Inactive Administered Medications - up to 3 most recent administrations Medication Order MAR Action Action Date Dose Rate Site lactated Ringer's infusion Intravenous, Continuous PRN, Starting on Sun03/24/25 at 0851, Until Sun03/24/25 at 0950, Routine New Bag 03/24/2025 8:51 AM EDT lidocaine PF (Xylocaine) 2 % injection Intravenous, As needed, Starting on Sun03/24/25 at 0858, Until Sun03/24/25 at 0950, Routine, Anesthesia Intraprocedure Given 03/24/2025 8:58 AM EDT 100 mg ondansetron (Zofran) injection Intravenous, As needed, Starting on Sun03/24/25 at 0912, Until Sun03/24/25 at 0950, Routine, Anesthesia Intraprocedure Given 03/24/2025 9:12 AM EDT 4 mg propofol (Diprivan) infusion 10 mg/mL Intravenous, Continuous PRN, Starting on Sun03/24/25 at 0905, Until Sun03/24/25 at 0950, Routine New Bag 03/24/2025 9:05 AM EDT 200 mcg/kg/min 116.76 mL/hr propofol (Diprivan) injection Intravenous, As needed, Starting on Sun03/24/25 at 0858, Until Sun03/24/25 at 0950, Routine, Anesthesia Intraprocedure Given 03/24/2025 8:58 AM EDT 200 mg rocuronium (ZeMuron) injection Intravenous, As needed, Starting on Sun03/24/25 at 0858, Until Sun03/24/25 at 0950, Routine, Anesthesia Intraprocedure Given 03/24/2025 8:58 AM EDT 50 mg sugammadex (Bridion) 100 MG/ML injection Intravenous, As needed, Starting on Sun03/24/25 at 0924, Until Sun03/24/25 at 0950, Routine, Anesthesia Intraprocedure Given 03/24/2025 9:24 AM EDT 200 mg documented in this encounter Additional Health Concerns Active Problems Noted Date Diagnosed Date Autogenerated Problem 03/12/2025 Assessment Noted Time A fall risk assessment has been complete d for the patient 03/12/2025 12:44 PM EDT A Body Mass Index follow-up plan has been documented for the patient 02/13/2025 1:58 PM EDT documented as of this encounter Care Teams Magazine Worker Relationship Specialty Start Date End Date System, Provider Not In, [place] [address] PCP - General Family Medicine 12/15/24 documented as of this encounter
--- NOTE | 2025-04-30 08:45 | CA_ITS ---
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 5.60 mmHg Mitral Valve MV E Max Arvind. 88.0 (40-130 cm/s) MV A Velocity 79.0 (40-130 cm/s) E/A Ratio 1.11 MV PHT 42.0 ms Pulmonary Valve PV Peak Velocity 118.0 (50-150 cm/s) Tricuspid Valve TR P. Velocity 235.00 cm/s RAP Estimate 10.00 mmHg RVSP 32.00 mmHg Left Ventricle The left ventricle is normal size. Left ventricular systolic function is normal. The left ventricular ejection fraction is within the normal range. There is normal left ventricular wall thickness. There is normal LV segmental wall motion. The left ventricular diastolic function is normal. LVEF is 55% Right Ventricle The right ventricle is normal size. The right ventricular systolic function is normal. Atria The left atrium size is normal. The right atrium size is normal. There is no color Doppler evidence of interatrial shunt. Aortic Valve The aortic valve opens well. There is no hemodynamically significant aortic valvular stenosis. No aortic regurgitation is present. Mitral Valve The mitral valve is normal in structure. No evidence of mitral valve stenosis. Trace mitral regurgitation is present. Tricuspid Valve The tricuspid valve leaflets are thin and pliable. Trace tricuspid regurgitation. There is insufficient TR jet to estimate RVSP. Pulmonic Valve The pulmonary valve is grossly normal in structure. Trace pulmonic valve regurgitation is present. Great Vessels The aortic root is normal in size. IVC is normal in size and collapses >50% with inspiration. Pericardium There is no pericardial effusion. Other Information Study Quality: Fair Conclusion Normal biventricular systolic function. No significant valvular stenosis or regurgitation. Electronically signed by : Marsha Cunningham MD 05/05/2025 23:05:06
--- OUTSIDE RECORDS SUMMARY | 2025-04-30 08:56 | XMS_ITS | Encounter Summary ---
Author Organization Healthcare Address [address] [id number] Care Team Providers Care Casting Machine Operator Helper Name Role Phone System, Provider Not In MD Primary Care Provider Unavailable Encounter Details Date Type Department Care Team ([facility] Contact Info) Description 03/30/2025 Telephone Pav [facility] Head[facility] Neck [facility] Respiratory [address] [facility] [place] [address] Beto Garner MD [address] [place] [address] Social History Tobacco Use Types Packs/Day Years [...] on file documented as of this encounter Plan of Treatment Upcoming Encounters Date Type Department Care Team ([facility] Contact Info) Description 05/04/2025 2:30 PM EDT Appointment Cardiac Imaging [address] [place] [address] documented as of this encounter Goals Goal Patient Goal Type Associated Problems Recent Progress Patient-Stated? Author Autogenerat ed Goal Care Plan Autogenerated Problem No GusColettemely Neal documented as of this encounter Visit Diagnoses Not on filedocumented in this encounter Additional Health Concerns Active Problems Noted Date Diagnosed Date Autogenerated Problem 03/12/2025 Assessment Noted Time A fall risk assessment has been complete d for the patient 03/12/2025 12:44 PM EDT A Body Mass Index follow-up plan has been documented for the patient 02/13/2025 1:58 PM EDT documented as of this encounter Care Teams Casting Machine Operator Helper Relationship Specialty Start Date End Date System, Provider Not In, [address] [place] [id number] PCP - General Family Medicine 12/15/24 documented as of this encounter
--- OUTSIDE RECORDS SUMMARY | 2025-04-30 08:57 | XMS_ITS | Encounter Summary ---
Author Organization Healthcare Address [address] [place] [address] Care Team Providers Care Beam Dyer Name Role Phone System, Provider Not In MD Primary Care Provider Unavailable Encounter Details Date Type Department Care Team ([facility] st Contact Info) Description 03/25/2025 Telephone Pav [facility] Head, Neck & Respiratory [address] [facility] [place] [phone] Beto Garner MD [address] [place] [address] Social History Tobacco Use Types [...] as of this encounter Miscellaneous Notes * Telephone Encounter - Marielle Mcmullen - 03/25/2025 3:57 PM EDT I called patient In regards to MyChart messages to cancel PFT and follow up with john Garner,LVM. documented in this encounter Plan of Treatment Upcoming Encounters Date Type Department Care Team (Late st Contact Info) Description 05/04/2025 2:30 PM EDT Appointment Cardiac Imaging [address] [place] [address] documented as of this encounter Goals Goal [...] documented as of this encounter Care Teams Beam Dyer Relationship Specialty Start Date End Date System, Provider Not In, [place] [address] PCP - General Family Medicine 12/15/24 documented as of this encounter
--- OUTSIDE RECORDS SUMMARY | 2025-04-30 08:57 | XMS_ITS | Clinical Summary ---
Author Organization Healthcare Address [address] [place] [address] Care Team Providers Care Prop Drawer Name Role Phone System, Provider Not In MD Primary Care Provider Unavailable Allergies Active Allergy Reactions Criticality Noted Date Comments Clonidine Other - please docum ent in the comment field High 03/12/2025 Caused blood pressure to go high Medications albuterol 108 (90 Base) MCG/ACT inhalerIndicati ons:Broncholith iasis,Subacute cough Inhale 2 puffs every 4 hours by inhalation route for 30 days. Active budesonide-form oterol (Symbicort) 80-4.5 MCG/ACT inhalerIndicati ons:Broncholith iasis,Subacute cough Inhale 2 puffs 2 times a day. Rinse mouth with water after use to reduce aftertaste and incidence of candidiasis. Do not swallow. Active Budeson-Glycopy rrol-Formoterol (BREZTRI AEROSPHERE IN)Indications: Broncholithiasi s,Subacute cough Inhale 2 times a day. Active guaiFENesin-cod eine (Robitussin-AC) 100-10 MG/5ML syrup Take 10 mL by mouth every 4 hours as needed for cough. 240 mL Active Additional Information Patient not taking.Reported on 03/12/2025 norgestimate-et hinyl estradiol (Ortho Tri-Cyclen LO) 0.18/0.215/0.25 MG-25 MCG tablet Take 1 tablet by mouth daily. Active acetylcysteine (Mucomyst) 20 % nebulizer solution Take 4 mL by nebulization every 4 hours. 30 mL 11 Active sodium chloride 3 % nebulizer solution Take 4 mL by nebulization 2 times a day. 240 mL 11 Active guaiFENesin (Mucinex) 600 MG 12 hr tablet Take 2 tablets by mouth 2 times a day. Do not crush, chew, or split. 120 tablet 11 Active albuterol (Proventil) (2.5 MG/3ML) 0.083% nebulizer solution Take 3 mL by nebulization 2 times a day. 180 mL 11 Active benzonatate (Tessalon Perles) 100 MG capsule Take 1 capsule by mouth 3 times a day as needed for cough. Do not crush or chew. 30 capsule Active Additional Information Patient not taking.Reported on 03/12/2025 amLODIPine (Norvasc) 5 MG tablet Take 1 tablet by mouth daily. 30 tablet Active Active Problems Problem Noted Date Diagnosed Date Atelectasis 12/31/2024 Pulmonary fibrosis, unspecified 12/31/2024 Abnormal results of pulmonary function studies 0 12/31/2024 Other disorders of lung 12/31/2024 Presence of other specified devices 12/31/2024 Other diseases of bronchus, not elsewhere classi fied 12/15/2024 Severe persistent asthma with (acute) exacerbati on 12/15/2024 Cough 11/25/2024 Bronchial obstruction 11/25/2024 Dyspnea 11/25/2024 Seasonal allergies 11/25/2024 Mild persistent asthma with exacerbation 025 Expiratory wheezing 10/01/2024 Obesity 10/01/2024 Influenza due to identified novel influenza A virus with other respiratory manifestations 10/01/2024 Headache 06/13/2021 Elevated blood-pressure read ing without diagnosis of hypertension 05/16/2021 Contact with and (suspected) exposure to covid-1 9 03/30/2021 Hypertensive disorder 09/18/2019 Asthmatic bronchitis 04/23/2019 Encounters Date Type Department Care Team Description 03/30/2025 Telephone [facility] [address] [facility], [address] [place] [address] Beot Garner MD 03/25/2025 Telephone [facility] [address] [facility], [address] [place] [address] Beto Garner MD 03/24/2025 8:51 AM EDT Anesthesia Event [facility] [address] [place] [address] Cal Franklin MD 03/24/2025 7:33 AM EDT - 03/24/2025 11:59 PM EDT Hospital Encounter [facility] [address] [place] [address] Beto Garner MD Adams, Glenda A RN Broncholithiasis Discharge Disposition: Home or Self Care 03/24/2025 Travel 03/12/2025 1:00 PM EDT Office Visit [facility] [address] [address] Beto Garner MD Broncholithiasis (Primary Dx) 03/12/2025 Travel 03/06/2025 Telephone [facility] [address] [address] Beto Garner MD 02/25/2025 Telephone [facility] [address] [address] Beto Garner MD 02/24/2025 Orders Only [facility] [address] [place] [address] Yesi Levy RN Broncholithiasis (Primary Dx) 02/23/2025 8:38 PM EDT - 02/24/2025 12:25 AM EDT Emergency [facility] [address] [place] [phone] Nicole Cruz MD Cruz, Angelo A, MD Hypertension, unspecified type (Primary Dx); Shortness of breath Discharge Disposition: Home or Self Care 02/23/2025 Travel 02/20/2025 Telephone [facility] [address] [address] Beto Garner MD 02/18/2025 Telephone [facility] [address] [address] Beto Garner MD 02/16/2025 Telephone [facility] [address] [address] Beto Garner MD 02/13/2025 2:40 PM EDT Office Visit [facility] [address] [place] [address] Chidi Chapa MD Shortness of breath (Primary Dx); Subacute cough; Bronchial obstruction 02/13/2025 1:50 PM EDT - 02/13/2025 11:59 PM EDT Hospital Encounter [facility] [address] [place] [address] Broncholithiasis Discharge Disposition: Home or Self Care 02/13/2025 11:45 AM EDT - 02/13/2025 1:49 PM EDT Hospital Encounter [facility] [address] [place] [address] Broncholithiasis Discharge Disposition: Home or Self Care 02/13/2025 Travel 02/13/2025 Orders Only [facility] [address] [address] Claire Garcia RN Broncholithiasis (Primary Dx) 02/13/2025 Orders Only [facility] [address] [address] Chidi Chapa MD Subacute cough (Primary Dx) 02/13/2025 Telephone [facility] [address] [address] Beto Garner MD 02/11/2025 Telephone [facility] [address] [address] Beto Garner MD 02/10/2025 Travel 02/05/2025 4:00 PM EDT Office Visit [facility] [address] [address] Beto Garner MD Broncholithiasis 02/05/2025 3:00 PM EDT Ancillary Procedure [facility] [address] [place] [phone] Broncholithiasis 02/05/2025 1:28 PM EDT - 02/05/2025 11:59 PM EDT Hospital Encounter [facility] [address] [place] [address] Broncholithiasis Discharge Disposition: Home or Self Care 02/05/2025 Social Work Psych Oncology [address] [place] [address] Jennifer Landaverde 02/05/2025 Travel from Last 3 Months Family History Medical History Relation Name Comments Brain cancer Maternal Grandmother Lung cancer Maternal Grandmother Heartburn Other Hyperlipidemia Other Hypertension, benign Other Stroke Other Tuberculosis Other sinus problem Other Relation Name Status Comments Maternal Grandmother Other Social History Tobacco Use Types Packs/Day Years Used Date Smoking Tobacco: Never Smokeless Tobacco: Never Tobacco Cessation:Counseling Given: Not Answered Alcohol Use Standard Drinks/Week Comments Not Currently [...] on file Sexual Orientation Not on file Last Filed Vital Signs Vital Sign Reading [...] Mass Index 39.23 03/24/2025 7:58 AM EDT Plan of Treatment Upcoming Encounters Date Type Department Care Team (Late st Contact Info) Description 05/04/2025 2:30 PM EDT Appointment Cardiac Imaging [address] [place] [address] Health Maintenance Due Date Last Done Comments [facility]-Infant/Child/Adol SDOH Screenings 1982 [facility]-Varicella Vaccines (1 of 2 - 13+ 2-dose series) 1995 [facility]- SDOH Screenings 2000 [facility]-Adult SDOH Screenings 2000 [facility]-DTaP,Tdap,and Td Vaccine s (1 - Tdap) 2001 [facility]-Hepatitis B Vaccines (1 of 3 - 19+ 3-dose series) 2001 [facility]-Pneumococcal Vaccine: Pediatrics (0 to 5 Years) and At-Risk Patients (6 to 49 Years) (1 of 2 - PCV) 2001 [facility]-Pap Smear 2003 HPV Vaccines (1 - 3-dose SCD M series) 2009 [facility]-Cervical Cancer Screening 2012 [facility]-HPV/Cotest 2012 [facility]-[id number]-55 Vaccine (3 - season) 2025 04/04/2021, 03/07/2021 [facility]-Influenza Vaccine (#1) 2025 [facility]-Depression Screening 12/15/2025 12/15/2024 [facility]-Zoster Vaccines (1 of 2) 2032 [facility]-Obesity Intervention Completed 02/13/2025 [facility]-HIV Screening Completed 02/23/2025 [facility]-Hepatitis C Screening Completed 02/23/2025 [facility]-HIB Vaccines Aged Out No longer e ligible based on patient's age to complete this topic [facility]-Hepatitis A Vaccines Aged Out No longer eligible based on patient's age to complete this topic [facility]-IPV Vaccines Aged Out No longer e ligible based on patient's age to complete this topic [facility]-Rotavirus Vaccines Aged Out No lo nger eligible based on patient's age to complete this topic Goals Goal Patient Goal Type Associated Problems Recent Progress Patient-Stated? Author Autogenerat ed Goal Care Plan Autogenerated Problem No [employer] Implanted Type Area Brine Process Operator Device Identifier Shelf Expiration Date Model / Serial / Lot Stent Bonastent Tracheal/Bronch ial [id number] - [id number] Implanted:Qty: 1 on 12/31/2024 by Beto Garner MD at [facility] [employer] [id number] 06/05/2027 [id number] / / [id number] Procedures Procedure Name Priority Date/Time Associated Diagnosis Comments BRONCHOSCOPY Routine 03/24/2025 9:38 AM EDT Broncholithiasis PB ANESTHESIA PLACEHOLDER Routine 03/24/2025 8:59 AM EDT VA AN ELECTIVE ENDOTRACHEAL AIRWAY Routine 03/24/2025 8:59 AM EDT POCT , URINE Routine 03/24/2025 8:14 AM EDT TROPONIN T, HIGH SENSITIVITY, 2 HOUR, PLASMA Timed 02/23/2025 11:[address] ANGIO NECK STAT 02/23/2025 11:[address] ANGIO HEAD STAT 02/23/2025 11:[address] ANGIO PULMONARY EMBOLISM STAT 02/23/2025 11:[address] HEAD WO IV CONTRAST STAT 11:13 PM EDT XR CHEST 1 VIEW STAT 02/23/2025 10:00 PM EDT TROPONIN T, HIGH SENSITIVITY, 0 HOUR, PLASMA, REFLEX TO 2 HOUR STAT 02/23/2025 9:44 PM EDT MORPHOLOGY STAT 02/23/2025 8:37 PM EDT MANUAL DIFFERENTIAL STAT 02/23/2025 8 :37 PM EDT PERIPHERAL BLOOD SMEAR, PATHOLOGIST INTERPRETATION STAT 02/23/2025 8:37 PM EDT N-TERMINAL PROBNP, PLASMA STAT 02/23/2025 8:37 PM EDT ED HIV 1/2 ANTIBODY/ANTIGEN SCREEN WITH REFLEX TO HIV I/II DIFFERENTIATION STAT 02/23/2025 8:37 PM EDT ED PROTOCOL HIV 1/2 ANTIBODY/ANTIGEN SCREEN W/REFLEX TO HIV 1/2 ANTIBODY DIFFERENTIATION STAT 02/23/2025 8:37 PM EDT HEPATITIS C ANTIBODY - ED W/REFLEX TO HCV QUANT PCR STAT 02/23/2025 8:37 PM EDT TEST QUALITATIVE PLASMA STAT 02/23/2025 8:37 PM EDT CBC WITH AUTO DIFFERENTIAL STAT 02/23/2025 8:37 PM EDT FREE T4, PLASMA STAT 02/23/2025 8:37 PM EDT TSH STAT 02/23/2025 8:37 PM EDT COMPREHENSIVE METABOLIC PANEL, PLASMA STAT 02/23/2025 8:37 PM EDT ECG ADULT STAT 02/23/2025 6:[address] CHEST WO IV CONTRAST Routine 02/14/20 2:22 PM EDT Broncholithiasis XR CHEST 2 VIEWS STAT 02/13/2025 1:07 PM EDT Broncholithiasis HC DIFFUSING CAPACITY - CARBON MONOXIDE DIFFUSING CAPACITY Routine 02/05/2025 2:49 PM EDT Broncholithiasis XR CHEST 2 VIEWS Routine 02/05/2025 1:35 PM EDT Broncholithiasis from Last 3 Months Results * Bronchoscopy w Stent Removal, w [...] min, and 0 seconds. Findings The main mir and left lung appeared normal. Right side has a Jayne stent in good position, the lumen was [...] 9:24 AM Staff Staff Role Megan Tucker, HODAN Endo Nurse Shira Lucero Endo Instrument Designer Naila Perla CRNA CRNA Maskey, Ashish P, MD Proceduralist Impression Overall Impression: UMM stent was removed The UMM is 25 % open post stent removal Post Procedure Diagnosis None Recommendation Follow-up: with me If she is more short of breath , we will plan for a 3D stent. Attestation I was present for the entire procedure Billing Codes See procedure report details above. 57335 - Dilation [id number] - Foreign body removal GC - Service has been performed in part by a resident/fellow under the direction of a teaching physician Beto Garner MD GI PROCEDURE ORDERABLES Final Result * VA AN ELECTIVE ENDOTRACHEAL AIRWAY, PB ANESTHESIA PLACEHOLDER (03/24/2025 8:59 AM EDT) Narrative Naila Perla CRNA - 03/24/2025 8:59 AM EDT Naila Perla CRNA 03/24/2025 9:07 AM Airway Date/Time: 03/24/2025 8:59 AM Reason: elective Airway not difficult General Information and Staff Patient location during procedure: OR CLEANING SUPERVISOR: Kristen Irwin CRNA Performed: CLEANING SUPERVISOR Patient Condition Indications for airway management: anesthesia [...] x1 attempt. Atraumatic. No change to dentition. Naila Perla CRNA ANESTHESIA ORDERABLES Sailaja l Result * POCT , URINE (03/24/2025 8:14 AM EDT) POCT Test, Urine Negative Males and Non- Females: Negative 03/24/2025 8:22 AM EDT [facility] [place] ID LisbethGissell weemsJerome Alicia 03/24/2025 8:22 AM EDT [facility] Device ID [id number] 03/24/2025 8:22 AM EDT [facility] Urine Urine specimen obtained by clean catch procedure / Unknown 03/24/2025 8:14 AM EDT 03/24/2025 8:22 AM EDT Beto Garner MD LAB POINT OF CARE TE ST DOCKED DEVICE UNSOLICITED RESULTS Final Result Performing Organization Address [facility] Co de Phone Number [facility] [address] [place] [address] * Troponin T, High Sensitivity, 2 Hour, Plasma (02/23/2025 11:40 PM EDT) Troponin T, High Sensitivity, 2 Hour <6 <14 ng/L 02/24/2025 12:14 AM EDT [facility] Troponin Delta Interpretation Not Calculated 02/24/2025 12:14 AM EDT [facility] Comment:Specimen not collect ed within acceptable timeframe. Delta will not be calculated. Blood Venous blood specimen / Unknown Venipuncture / Unknown 02/23/2025 11:40 PM EDT 02/23/2025 11:51 PM EDT us Nicole Cruz MD LAB BLOOD ORDERABLES Final Resu lt Performing Organization Address City/[facility] Co de Phone Number [facility] [address] [place] [address] * CT Angio Pulmonary Embolism (02/23/2025 11:13 PM EDT) Anatomical Region Laterality Modality Chest Computed Tomogra phy Impressions 02/23/2025 11:26 PM EDT No pulmonary embolism. CRITICAL RESULT: No. COMMUNICATION: Per this written report. Drafted by Stas Anderson MD on 02/23/2025 11:22 PM Final report signed by Stas Anderson MD on 02/23/2025 11:26 PM Narrative 02/23/2025 11:26 PM EDT CLINICAL INDICATION: Pulmonary stents, increasing cough TECHNIQUE: Imaging of the chest was performed from thoracic inlet through upper abdomen, using spiral technique, following administration of IV contrast, Omnipaque 350, 100 mL per the pulmonary angiogram protocol. In addition, 3D images were created and reviewed. TOTAL DLP (Dose-Length Product): 1734.17 mGy.cm. Please note: The reported value represents the total of one or more individual components during the CT acquisition on this date and at this time, and as such, the same value may appear in more than one CT report depending on the interpreting/reporting physicians. COMPARISON: None. FINDINGS: Pulmonary Arteries/Vessels: No pulmonary embolism. Right Heart [...] imaging of the upper abdomen is unremarkable. Procedure Note Stas Anderson MD - 02/23/2025 CLINICAL INDICATION: Pulmonary stents, increasing cough TECHNIQUE: Imaging of the chest was performed from thoracic inlet through upperabdomen, using spiral technique, following administration of IV contrast,Omnipaque 350, 100 mL per the pulmonary angiogram protocol. In addition,3D images were created and reviewed. TOTAL DLP (Dose-Length Product): 1734.17 mGy.cm. Please note: The reportedvalue represents the total of one or more individual components during theCT acquisition on this date and at this time, and as such, the same valuemay appear in more than one CT report depending on theinterpreting/reporting physicians. COMPARISON: None. FINDINGS: Pulmonary Arteries/Vessels: No pulmonary embolism. Right Heart Strain: No evidence of right heart strain. Pleural/Pericardial space: No pneumothorax. No pleural effusions. Nopericardial effusion. Lymph Nodes: No lymphadenopathy within the chest. Lungs: Right main bronchus stent in place and patent. Redemonstration ofmultiple calcified right hilar lymph nodes. No airspace disease or majoratelectasis Mediastinum: Otherwise unremarkable. Chest wall: No chest wall hematoma or contusion. Bones: No acute fracture within the chest. Upper Abdomen: Limited imaging of the upper abdomen is unremarkable. IMPRESSION: No pulmonary embolism. CRITICAL RESULT: No. COMMUNICATION: Per this written report. Drafted by Stas Anderson MD on 02/23/2025 11:22 PM Final report signed by Stas Anderson MD on 02/23/2025 11:26 PM us Raulito Holloway MD IMG CT PROCEDURES Final Res ult * CT Angio Neck (02/23/2025 11:13 PM EDT) Anatomical Region Laterality Modality Carotid Artery Computed Tomogra phy Impressions 02/23/2025 11:28 PM EDT Neck CTA: No significant stenosis or occlusion of the cervical carotid or vertebral arteries. Head CTA: No significant stenosis or occlusion major intracranial arteries. CRITICAL RESULT: No. COMMUNICATION: Per this written report. Drafted by Byron Atkins MD on 02/23/2025 11:24 PM Final report signed by Byron Atkins MD on 02/23/2025 11:28 PM Narrative 02/23/2025 11:28 PM EDT CLINICAL INDICATION: Right eye blurry. Significant headache and hypertensive. TECHNIQUE: Head CTA: Axial images were obtained through the head during contrast bolus injection and multiplanar MIP images were created. Neck CTA: Axial images were obtained through the neck during bolus contrast injection and multiplanar reformatted and MIP images were created. Total DLP (Dose-Length Product): 1734.17 mGy.cm (accession [id number]), 1734.17 mGy.cm (accession [id number]) mGy*cm. Please note: The reported value represents the total of one or more individual components during the CT acquisition on this date and at this time, and as such, the same value may appear in more than one CT report depending on the interpreting/reporting physicians. COMPARISON: CT chest 02/13/2025. FINDINGS: Neck CTA: Diagnostic Quality: Adequate. Aorta and brachiocephalic and subclavian artery origins: Patent. Right Cervical Carotid System: No significant stenosis. No hemodynamically significant stenosis right internal carotid artery as determined by NASCET criteria. Left Cervical Carotid System: No significant stenosis. No hemodynamically significant stenosis left internal carotid artery as determined by NASCET criteria. Vertebral Arteries: No significant stenosis or occlusion. Other Findings: Please refer to dedicated CTA chest performed concurrently and dictated separately for additional details. Head CTA: Diagnostic Quality: Adequate. Vertebrobasilar System: No significant stenosis or occlusion. Fenestration of the basilar artery. Carotid Arteries: No significant stenosis or occlusion. [place] and Major Peripheral Branches: No significant stenosis or occlusion. Other Findings: None. Procedure Note Byron Atkins MD - 02/23/2025 CLINICAL INDICATION: Right eye blurry. Significant headache and hypertensive. TECHNIQUE: Head CTA: Axial images were obtained through the head during contrastbolus injection and multiplanar MIP images were created. Neck CTA: Axial images were obtained through the neck during boluscontrast injection and multiplanar reformatted and MIP images werecreated. Total DLP (Dose-Length Product): 1734.17 mGy.cm (accession [id number]),1734.17 mGy.cm (accession [id number]) mGy*cm. Please note: The reportedvalue represents the total of one or more individual components during theCT acquisition on this date and at this time, and as such, the same valuemay appear in more than one CT report depending on theinterpreting/reporting physicians. COMPARISON: CT chest 02/13/2025. FINDINGS: Neck CTA: Diagnostic Quality: Adequate. Aorta and brachiocephalic and subclavian artery origins: Patent. Right Cervical Carotid System: No significant stenosis. Nohemodynamically significant stenosis right internal carotid artery asdetermined by NASCET criteria. Left Cervical Carotid System: No significant stenosis. No hemodynamicallysignificant stenosis left internal carotid artery as determined by NASCETcriteria. Vertebral Arteries: No significant stenosis or occlusion. Other Findings: Please refer to dedicated CTA chest performed concurrentlyand dictated separately for additional details. Head CTA: Diagnostic Quality: Adequate. Vertebrobasilar System: No significant stenosis or occlusion. Fenestrationof the basilar artery. Carotid Arteries: No significant stenosis or occlusion. [place] and Major Peripheral Branches: No significant stenosis orocclusion. Other Findings: None. IMPRESSION: Neck CTA: No significant stenosis or occlusion of the cervical carotid or vertebralarteries. Head CTA: No significant stenosis or occlusion major intracranial arteries. CRITICAL RESULT: No. COMMUNICATION: Per this written report. Drafted by Byron Atkins MD on 02/23/2025 11:24 PM Final report signed by Byron Atkins MD on 02/23/2025 11:28 PM us Raulito Holloway MD IMG CT PROCEDURES Final Res ult * CT Head wo IV Contrast (02/23/2025 11:13 PM EDT) Anatomical Region Laterality Modality Head Computed Tomogra phy Impressions 02/23/2025 11:23 PM EDT No acute intracranial hemorrhage or acute large territorial infarction. CRITICAL RESULT: No. COMMUNICATION: Per this written report. Drafted by Byron Atkins MD on 02/23/2025 11:22 PM Final report signed by Byron Atkins MD on 02/23/2025 11:23 PM Narrative 02/23/2025 11:23 PM EDT CLINICAL INDICATION: Right eye blurry, significant headache and hypertensive TECHNIQUE: Axial CT images of the head were obtained without contrast administration. Total DLP (Dose-Length Product): 1734.17 mGy.cm. Please note: The reported value represents the total of one or more individual components during the CT acquisition on this date and at this time, and as such, the same value may appear in more than one CT report depending on the interpreting/reporting physicians. COMPARISON: None. FINDINGS: Diagnostic Quality: Adequate. No acute intracranial hemorrhage or acute large territorial infarction. No focal mass, mass effect, or midline shift. Ventricles and cisternal spaces grossly within normal limits for patient age. Soft Tissues: No significant soft tissue swelling is present. Skull: No acute displaced calvarial fracture. Sinuses and Mastoids: The visualized portions of the paranasal sinuses are clear. The mastoid air cells are clear. Procedure Note Byron Atkins MD - 02/23/2025 CLINICAL INDICATION: Right eye blurry, significant headache and hypertensive TECHNIQUE: Axial CT images of the head were obtained without contrastadministration. Total DLP (Dose-Length Product): 1734.17 mGy.cm. Please note: The reportedvalue represents the total of one or more individual components during theCT acquisition on this date and at this time, and as such, the same valuemay appear in more than one CT report depending on theinterpreting/reporting physicians. COMPARISON: None. FINDINGS: Diagnostic Quality: Adequate. No acute intracranial hemorrhage or acute large territorial infarction. Nofocal mass, mass effect, or midline shift. Ventricles and cisternal spacesgrossly within normal limits for patient age. Soft Tissues: No significant soft tissue swelling is present. Skull: No acute displaced calvarial fracture. Sinuses and Mastoids: The visualized portions of the paranasal sinuses areclear. The mastoid air cells are clear. IMPRESSION: No acute intracranial hemorrhage or acute large territorial infarction. CRITICAL RESULT: No. COMMUNICATION: Per this written report. Drafted by Byron Atkins MD on 02/23/2025 11:22 PM Final report signed by Byron Atkins MD on 02/23/2025 11:23 PM us Raulito Holloway MD IMG CT PROCEDURES Final Res ult * CT Angio Head (02/23/2025 11:13 PM EDT) Anatomical Region Laterality Modality [place] Computed Tomogr aphy Impressions 02/23/2025 11:28 PM EDT Neck CTA: No significant stenosis or occlusion of the cervical carotid or vertebral arteries. Head CTA: No significant stenosis or occlusion major intracranial arteries. CRITICAL RESULT: No. COMMUNICATION: Per this written report. Drafted by Byron Atkins MD on 02/23/2025 11:24 PM Final report signed by Byron Atkins MD on 02/23/2025 11:28 PM Narrative 02/23/2025 11:28 PM EDT CLINICAL INDICATION: Right eye blurry. Significant headache and hypertensive. TECHNIQUE: Head CTA: Axial images were obtained through the head during contrast bolus injection and multiplanar MIP images were created. Neck CTA: Axial images were obtained through the neck during bolus contrast injection and multiplanar reformatted and MIP images were created. Total DLP (Dose-Length Product): 1734.17 mGy.cm (accession [id number]), 1734.17 mGy.cm (accession [id number]) mGy*cm. Please note: The reported value represents the total of one or more individual components during the CT acquisition on this date and at this time, and as such, the same value may appear in more than one CT report depending on the interpreting/reporting physicians. COMPARISON: CT chest 02/13/2025. FINDINGS: Neck CTA: Diagnostic Quality: Adequate. Aorta and brachiocephalic and subclavian artery origins: Patent. Right Cervical Carotid System: No significant stenosis. No hemodynamically significant stenosis right internal carotid artery as determined by NASCET criteria. Left Cervical Carotid System: No significant stenosis. No hemodynamically significant stenosis left internal carotid artery as determined by NASCET criteria. Vertebral Arteries: No significant stenosis or occlusion. Other Findings: Please refer to dedicated CTA chest performed concurrently and dictated separately for additional details. Head CTA: Diagnostic Quality: Adequate. Vertebrobasilar System: No significant stenosis or occlusion. Fenestration of the basilar artery. Carotid Arteries: No significant stenosis or occlusion. [place] and Major Peripheral Branches: No significant stenosis or occlusion. Other Findings: None. Procedure Note Byron Atkins MD - 02/23/2025 CLINICAL INDICATION: Right eye blurry. Significant headache and hypertensive. TECHNIQUE: Head CTA: Axial images were obtained through the head during contrastbolus injection and multiplanar MIP images were created. Neck CTA: Axial images were obtained through the neck during boluscontrast injection and multiplanar reformatted and MIP images werecreated. Total DLP (Dose-Length Product): 1734.17 mGy.cm (accession [id number]),1734.17 mGy.cm (accession [id number]) mGy*cm. Please note: The reportedvalue represents the total of one or more individual components during theCT acquisition on this date and at this time, and as such, the same valuemay appear in more than one CT report depending on theinterpreting/reporting physicians. COMPARISON: CT chest 02/13/2025. FINDINGS: Neck CTA: Diagnostic Quality: Adequate. Aorta and brachiocephalic and subclavian artery origins: Patent. Right Cervical Carotid System: No significant stenosis. Nohemodynamically significant stenosis right internal carotid artery asdetermined by NASCET criteria. Left Cervical Carotid System: No significant stenosis. No hemodynamicallysignificant stenosis left internal carotid artery as determined by NASCETcriteria. Vertebral Arteries: No significant stenosis or occlusion. Other Findings: Please refer to dedicated CTA chest performed concurrentlyand dictated separately for additional details. Head CTA: Diagnostic Quality: Adequate. Vertebrobasilar System: No significant stenosis or occlusion. Fenestrationof the basilar artery. Carotid Arteries: No significant stenosis or occlusion. [place] and Major Peripheral Branches: No significant stenosis orocclusion. Other Findings: None. IMPRESSION: Neck CTA: No significant stenosis or occlusion of the cervical carotid or vertebralarteries. Head CTA: No significant stenosis or occlusion major intracranial arteries. CRITICAL RESULT: No. COMMUNICATION: Per this written report. Drafted by Byron Atkins MD on 02/23/2025 11:24 PM Final report signed by Byron Atkins MD on 02/23/2025 11:28 PM us Raulito Holloway MD IMG CT PROCEDURES Final Res ult * XR Chest 1 View (02/23/2025 10:00 PM EDT) Anatomical Region Laterality Modality Chest Digital Radiogra phy Impressions 02/23/2025 10:21 PM EDT No acute disease CRITICAL RESULT: No. COMMUNICATION: Per this written report. Drafted by Stas Anderson MD on 02/23/2025 10:20 PM Final report signed by Stas Anderson MD on 02/23/2025 10:21 PM Narrative 02/23/2025 10:21 PM EDT CLINICAL INDICATION: SOB, HTN TECHNIQUE: XR CHEST 1 VIEW COMPARISON: February 13, 2025 FINDINGS: Cardiomediastinal silhouette within normal limits. No pneumothorax significant effusion or focal opacity Procedure Note Stas Anderson MD - 02/23/2025 CLINICAL INDICATION: SOB, HTN TECHNIQUE: XR CHEST 1 VIEW COMPARISON: February 13, 2025 FINDINGS: Cardiomediastinal silhouette within normal limits. No pneumothoraxsignificant effusion or focal opacity IMPRESSION: No acute disease CRITICAL RESULT: No. COMMUNICATION: Per this written report. Drafted by Stas Anderson MD on 02/23/2025 10:20 PM Final report signed by Stas Anderson MD on 02/23/2025 10:21 PM Nicole Cruz MD IMG XR PROCEDURES Final Result * Troponin T, High Sensitivity, 0 Hour Plasma, Reflex to 2 Hour (02/23/2025 9:44 PM EDT) [facility] Troponin T, High Sensitivity, 0 Hour <6 <14 ng/L 02/23/2025 10:09 PM EDT [facility] Blood Venous blood specimen / Unknown Venipuncture / Unknown 02/23/2025 9:44 PM EDT 02/23/2025 9:50 PM EDT Nicole Cruz MD LAB BLOOD ORDERABLES Final Resu lt Performing Organization Address [facility] Co de Phone Number [facility] [address] [place] [address] * ED HIV 1/2 Antibody/Antigen Screen w/Reflex to HIV 1/2 Differentiation (02/23/2025 8:37 PM EDT) [facility] HIV 1 & 2 Antibody/Antigen Screen Non Reactive Non Reactive 02/23/2025 9:25 PM EDT [facility] Comment:Screening for HIV 1 & 2 antibodies, and P24 antigen is NONREACTIVE. No confirmatory testing is required. Blood Venous blood specimen / Unknown Venipuncture / Unknown 02/23/2025 8:37 PM EDT 02/23/2025 8:43 PM EDT Raulito Holloway MD LAB BLOOD ORDERABLES Final Result Performing Organization Address [facility] Co de Phone Number [facility] [address] [place] [address] * Morphology (02/23/2025 8:37 PM EDT) [facility] RBC Morphology RBC Morphology Consistent with Indices and RDW LAB HEMATOLOGY METHOD 02/23/2025 11:03 PM EDT [facility] Platelet Estimate Platelet smear estimate consistent with automated count LAB HEMATOLOGY METHOD 02/23/2025 11:03 PM EDT [facility] Blood Venous blood specimen / Unknown Venipuncture / Unknown 02/23/2025 8:37 PM EDT 02/23/2025 8:39 PM EDT Raulito Holloway MD LAB BLOOD ORDERABLES Final Result [facility] [address] [place] [address] * (ABNORMAL) Manual Differential (02/23/2025 8:37 PM EDT) Blasts % 0 % LAB HEMATOLOGY METHOD 02/23/2025 11:03 PM EDT [facility] Promyelocytes % 0 % LAB HEMATOLOGY METHOD 02/23/2025 11:03 PM EDT [facility] Myelocytes % 0 % LAB HEMATOLOGY METHOD 02/23/2025 11:03 PM EDT [facility] Metamyelocytes % 0 % LAB HEMATOLOGY METHOD 02/23/2025 11:03 PM EDT [facility] Neutrophils % 69 % LAB HEMATOLOGY METHOD 02/23/2025 11:03 PM EDT [facility] Lymphocytes % 28 % LAB HEMATOLOGY METHOD 02/23/2025 11:03 PM EDT [facility] Reactive Lymphocytes % 0 % LAB HEMATOLOGY METHOD 02/23/2025 11:03 PM EDT [facility] Monocytes % 3 % LAB HEMATOLOGY METHOD 02/23/2025 11:03 PM EDT [facility] Eosinophils % 0 % LAB HEMATOLOGY METHOD 02/23/2025 11:03 PM EDT [facility] Basophils % 0 % LAB HEMATOLOGY METHOD 02/23/2025 11:03 PM EDT [facility] Blasts Absolute 0.00 10*3/UL LAB HEMATOLOGY METHOD 02/23/2025 11:03 PM EDT [facility] Promyelocytes Absolute 0.00 10*3/uL LAB HEMATOLOGY METHOD 02/23/2025 11:03 PM EDT [facility] Myelocytes Absolute 0.00 10*3/uL LAB HEMATOLOGY METHOD 02/23/2025 11:03 PM EDT [facility] Metamyelocytes Absolute 0.00 10*3/uL LAB HEMATOLOGY METHOD 02/23/2025 11:03 PM EDT [facility] Neutrophils Absolute 10.41(H) 1.60 - 6.10 10*3/uL LAB HEMATOLOGY METHOD 02/23/2025 11:03 PM EDT [facility] Lymphocytes Absolute 4.22(H) 1.20 - 3.90 10*3/uL LAB HEMATOLOGY METHOD 02/23/2025 11:03 PM EDT [facility] Reactive Lymphocytes Absolute 0.00 10*3/uL LAB HEMATOLOGY METHOD 02/23/2025 11:03 PM EDT [facility] Monocytes Absolute 0.45 0.30 - 0.90 10*3/uL LAB HEMATOLOGY METHOD 02/23/2025 11:03 PM EDT [facility] Eosinophils Absolute 0.00 0.00 - 0.50 10*3/uL LAB HEMATOLOGY METHOD 02/23/2025 11:03 PM EDT [facility] Basophils Absolute 0.00 0.00 - 0.10 10*3/uL LAB HEMATOLOGY METHOD 02/23/2025 11:03 PM EDT [facility] Blood Venous blood specimen / Unknown Venipuncture / Unknown 02/23/2025 8:37 PM EDT 02/23/2025 8:39 PM EDT Raulito Holloway MD LAB BLOOD ORDERABLES Final Result [facility] [address] [place] [address] * Hepatitis C Antibody - ED (02/23/2025 8:37 PM EDT) Pathologist [facility] Hepatitis C Antibody Negative Negative 02/23/2025 9:24 PM EDT [facility] Blood Venous blood specimen / Unknown Venipuncture / Unknown 02/23/2025 8:37 PM EDT 02/23/2025 8:43 PM EDT Raulito Holloway MD LAB BLOOD ORDERABLES Final Result [facility] [address] [place] [address] * BNP (02/23/2025 8:37 PM EDT) N-Terminal, PROBNP, Plasma 57 0 - 449 pg/mL 02/23/2025 9:21 PM EDT [facility] Blood Venous blood specimen / Unknown Venipuncture / Unknown 02/23/2025 8:37 PM EDT 02/23/2025 8:39 PM EDT Raulito Holloway MD LAB BLOOD ORDERABLES Final Result Performing Organization Address [facility] Co de Phone Number [facility] [address] [place] [address] * Peripheral blood smear, pathologist interpretation (02/23/2025 8:37 PM EDT) Clinical Diagnosis, Peripheral Smear Asthma, shortness of breath, leukocytosis LAB HEMATOLOGY METHOD 02/24/2025 3:53 PM EDT [facility] Interpretation , Peripheral Smear Mild leukocytosis with neutrophilia and lymphocytosis, with essentially normal morphology. Red blood cells and platelets are essentially normal in counts and morphology 02/24/2025 3:53 PM EDT [facility] Pathologist Signature, Peripheral Smear 02/24/2025 3:53 PM EDT [facility] Comment:Reviewed by: Guillermo Mccormack MD Blood Venous blood specimen / Unknown Venipuncture / Unknown 02/23/2025 8:37 PM EDT 02/23/2025 8:39 PM EDT Raulito Holloway MD LAB PATHOLOGY ORDERABLES Fi nal Result Performing Organization Address [facility] Co de Phone Number [facility] [address] [place] [address] * (ABNORMAL) CBC w/diff (02/23/2025 8:37 PM EDT) WBC Count 15.08(H) 3.70 - 10.30 10*3/uL LAB HEMATOLOGY METHOD 02/23/2025 11:04 PM EDT [facility] RBC Count 4.73 3.90 - 5.20 10*6/uL LAB HEMATOLOGY METHOD 02/23/2025 11:04 PM EDT [facility] HGB 13.6 11.2 - 15.7 g/dL LAB HEMATOLOGY METHOD 02/23/2025 11:04 PM EDT [facility] HCT 40.5 34.0 - 45.0 % LAB HEMATOLOGY METHOD 02/23/2025 11:04 PM EDT [facility] Platelet Count 370(H) 155 - 369 10*3/uL LAB HEMATOLOGY METHOD 02/23/2025 11:04 PM EDT [facility] MCV 86 79 - 98 fL LAB HEMATOLOGY METHOD 02/23/2025 11:04 PM EDT [facility] MCH 28.8 26.0 - 32.0 pg LAB HEMATOLOGY METHOD 02/23/2025 11:04 PM EDT [facility] MCHC 33.6 30.7 - 35.5 g/dL LAB HEMATOLOGY METHOD 02/23/2025 11:04 PM EDT [facility] RDW 13.4 11.5 - 14.5 % LAB HEMATOLOGY METHOD 02/23/2025 11:04 PM EDT [facility] MPV 9.4 8.8 - 12.5 fL LAB HEMATOLOGY METHOD 02/23/2025 11:04 PM EDT [facility] nRBC 0.0 <=0.0 per 100 WBCs LAB HEMATOLOGY METHOD 02/23/2025 11:04 PM EDT [facility] Differential Type Manual LAB HEMATOLOGY METHOD 02/23/2025 11:04 PM EDT [facility] Blood Venous blood specimen / Unknown Venipuncture / Unknown 02/23/2025 8:37 PM EDT 02/23/2025 8:39 PM EDT Narrative [facility] - 02/23/2025 11:04 PM EDT Therapeutic decision making should be based on absolute values, rather than percentages. The previously reported component Neutrophils % is no longer being reported.The previously reported component Lymphocytes % is no longer being reported.The previously reported component Monocytes % is no longer being reported.The previously reported component Eosinophils % is no longer being reported.The previously reported component Basophils % is no longer being reported.The previously reported component Immature Granulocytes % is no longer being reported.The previously reported component Absolute Neutrophils is no longer being reported.The previously reported component Absolute Lymphocytes is no longer being reported.The previously reported component Absolute Monocytes is no longer being reported.The previously reported component Absolute Eosinophils is no longer being reported.The previously reported component Absolute Basophils is no longer being reported.The previously reported component Absolute Immature Granulocytes is no longer being reported. us Raulito Holloway MD LAB BLOOD [place] [address] * hCG qualitative (02/23/2025 8:37 PM EDT) Test Negative Negative 02/23/2025 9:21 PM EDT [facility] Blood Venous blood specimen / Unknown Venipuncture / Unknown 02/23/2025 8:37 PM EDT 02/23/2025 8:39 PM EDT [facility] - 02/23/2025 9:21 PM EDT Reference Range: Males and non- females: Negative. Raulito Holloway MD LAB [place] [address] * Thyroid Stimulating Hormone, Plasma (02/23/2025 8:37 PM EDT) Thyroid Stimulating Hormone, Plasma 2.93 0.40 - 4.20 uIU/mL 02/23/2025 9:21 PM EDT [facility] Blood Venous blood specimen / Unknown Venipuncture / Unknown 02/23/2025 8:37 PM EDT 02/23/2025 8:39 PM EDT [facility] - 02/23/2025 9:21 PM EDT Trimester Specific Ranges TSH ( IU/mL) 1st Trimester 0.1 - 3.0 2nd Trimester 0.19 - 4.06 3rd Trimester 0.3 - 3.7 Raulito Holloway MD LAB [place] [address] * Free T4, Plasma (02/23/2025 8:37 PM EDT) Free T4, Plasma 0.9 0.8 - 1.7 ng/dL 02/23/2025 9:21 PM EDT [facility] Blood Venous blood specimen / Unknown Venipuncture / Unknown 02/23/2025 8:37 PM EDT 02/23/2025 8:39 PM EDT Narrative [facility] - 02/23/2025 9:21 PM EDT Free T4 Trimester Specific Ranges 1st Trimester 0.9 - 1.50 ng/dL 2nd Trimester 0.7 - 1.40 ng/dL 3rd Trimester 0.7 - 1.24 ng/dL us Raulito Holloway MD LAB BLOOD ORDERABLES Final Result [facility] [address] [place] [address] * (ABNORMAL) CMP (02/23/2025 8:37 PM EDT) Glucose, Plasma 102(H) 74 - 99 mg/dL 02/23/2025 9:21 PM EDT [facility] BUN, Plasma 9 7 - 21 mg/dL 02/23/2025 9:21 PM EDT [facility] Creatinine, Plasma 0.90 0.60 - 1.10 mg/dL 02/23/2025 9:21 PM EDT [facility] BUN/Creatinine Ratio 10 02/23/2025 9:21 PM EDT [facility] Sodium, Plasma 138 136 - 145 mmol/L 02/23/2025 9:21 PM EDT [facility] Potassium, Plasma 3.8 3.6 - 4.9 mmol/L 02/23/2025 9:21 PM EDT [facility] Chloride, Plasma 105 97 - 107 mmol/L 02/23/2025 9:21 PM EDT [facility] CO2, Plasma 20(L) 22 - 29 mmol/L 02/23/2025 9:21 PM EDT [facility] Anion Gap 13 6 - 16 mmol/L 02/23/2025 9:21 PM EDT [facility] Total Calcium, Plasma 8.9 8.9 - 10.2 mg/dL 02/23/2025 9:21 PM EDT [facility] Total Protein 7.0 6.3 - 7.9 g/dL 02/23/2025 9:21 PM EDT [facility] Albumin, Plasma 3.8 3.5 - 5.2 g/dL 02/23/2025 9:21 PM EDT [facility] AST, Plasma 15 10 - 35 U/L 02/23/2025 9:21 PM EDT [facility] ALT, Plasma 25 10 - 35 U/L 02/23/2025 9:21 PM EDT [facility] Alkaline Phosphatase, Plasma 104 35 - 104 U/L 02/23/2025 9:21 PM EDT [facility] Total Bilirubin, Plasma 0.2 0.2 - 1.1 mg/dL 02/23/2025 9:21 PM EDT [facility] eGFRcr 82.0 mL/min/1.7 3m*2 02/23/2025 9:21 PM EDT [facility] Comment:Reported eGFRcr in m L/min/1.73m2 is based the CKD-EPI 2020 equation that does not use a race coefficient. Blood Venous blood specimen / Unknown Venipuncture / Unknown 02/23/2025 8:37 PM EDT 02/23/2025 8:39 PM EDT us Raulito Holloway MD LAB BLOOD ORDERABLES Final Result [facility] [address] [place] [address] * EKG now - STAT (adult) (02/23/2025 6:31 PM EDT) EKG DIAGNOSIS CLASS Normal MUSE ECG Ventricular Rate 81 BPM MUSE ECG Atrial Rate 81 BPM MUSE ECG VA Interval 140 ms MUSE ECG QRSD Interval 82 ms MUSE ECG QT Interval 370 ms MUSE ECG QTC Interval 429 ms MUSE ECG P [place] 40 degrees MUSE ECG R [place] 23 degrees MUSE ECG T Wave [place] 14 degrees MUSE ECG Diagnosis Normal sinus rhythm MUSE ECG Diagnosis Normal ECG MUSE ECG Diagnosis MUSE ECG Diagnosis Confirmed by Paulina Lynch ([id number]) on 02/24/2025 9:41:52 AM MUSE ECG 02/23/2025 6:31 PM EDT 02/24/2025 9:41 AM EDT us Nicole Cruz MD ECG ORDERABLES Final Result MUSE ECG * CT Chest wo IV Contrast (02/13/2025 2:22 PM EDT) Anatomical Region Laterality Modality Chest Computed Tomogra phy Impressions 02/13/2025 4:25 PM EDT Calcified right hilar lymph node producing mass effect on the right mainstem bronchus again noted but with improved patency status post stent placement. CRITICAL RESULT: No. COMMUNICATION: Per this written report. By electronically signing this report, I, the attending physician, attest that I have personally reviewed the images/data for the above examination(s) and agree with the final edited report. Drafted by Devan Capellan MD on 02/13/2025 3:10 PM Final report signed by Júnior Szymanski MD on 02/13/2025 4:25 PM Narrative 02/13/2025 4:25 PM EDT CLINICAL INDICATION: Bronchial obstruction TECHNIQUE: Multiple CT helical images were obtained from thoracic inlet through upper abdomen without administration of IV contrast. The imaging protocol used in this examination was optimized to achieve diagnostic quality with the lowest possible radiation dose in accordance with the principles of ALARA (As Low As Reasonably Achievable). COMPARISON: November 20, 2024 FINDINGS: Mediastinum and Pleura: Calcified lower right paratracheal lymph node and interlobar lymph node (series 2, image 34) and (series 2, image 40). The previously noted mass effect from this adjacent calcified lymph node on the right mainstem bronchus is improved with a widely patent stent now noted in place. No pleural or pericardial effusion. Lungs: No suspicious pulmonary nodules. Bronchial wall thickening. Mild right lung hyperinflation appears improved from comparison. Upper Abdomen: No suspicious lesions in the partially visualized upper abdomen. Musculoskeletal: No suspicious lytic or sclerotic lesion. Procedure Note Júnior Szymanski MD - 02/13/2025 CLINICAL INDICATION: Bronchial obstruction TECHNIQUE: Multiple CT helical images were obtained from thoracic inlet through upperabdomen without administration of IV contrast. The imaging protocol used in this examination was optimized to achievediagnostic quality with the lowest possible radiation dose in accordancewith the principles of ALARA (As Low As Reasonably Achievable). COMPARISON: November 20, 2024 FINDINGS: Mediastinum and Pleura: Calcified lower right paratracheal lymph node andinterlobar lymph node (series 2, image 34) and (series 2, image 40). Thepreviously noted mass effect from this adjacent calcified lymph node onthe right mainstem bronchus is improved with a widely patent stent nownoted in place. No pleural or pericardial effusion. Lungs: No suspicious pulmonary nodules. Bronchial wall thickening. Mildright lung hyperinflation appears improved from comparison. Upper Abdomen: No suspicious lesions in the partially visualized upperabdomen. Musculoskeletal: No suspicious lytic or sclerotic lesion. IMPRESSION: Calcified right hilar lymph node producing mass effect on the rightmainstem bronchus again noted but with improved patency status post stentplacement. CRITICAL RESULT: No. COMMUNICATION: Per this written report. By electronically signing this report, I, the attending physician, benito I have personally reviewed the images/data for the aboveexamination(s) and agree with the final edited report. Drafted by Devan Capellan MD on 02/13/2025 3:10 PM Final report signed by Júnior Szymanski MD on 02/13/2025 4:25 PM Beto Garner MD IMG CT PROCEDURES Final Resul t * XR Chest 2 Views (02/13/2025 1:07 PM EDT) Only the most recent of2 resultswithin the time period is included. Anatomical Region Laterality Modality Chest Digital Radiogra phy Impressions 02/13/2025 1:38 PM EDT No focal airspace consolidation. CRITICAL RESULT: No. COMMUNICATION: Per this written report. Drafted by Avila Fontenot MD on 02/13/2025 1:30 PM Final report signed by Avila Fontenot MD on 02/13/2025 1:38 PM Narrative 02/13/2025 1:38 PM EDT CLINICAL INDICATION: stent placement TECHNIQUE: XR CHEST 2 VIEWS COMPARISON: February 05, 2025. FINDINGS: Lungs are clear without evidence of focal consolidation or parenchymal opacities. No evidence of a pleural effusion or pneumothorax. Cardiac and mediastinal silhouette are within normal limits. No acute osseous abnormalities. Procedure Note Avila Fontenot MD - 02/13/2025 CLINICAL INDICATION: stent placement TECHNIQUE: XR CHEST 2 VIEWS COMPARISON: February 05, 2025. FINDINGS: Lungs are clear without evidence of focal consolidation or parenchymalopacities. No evidence of a pleural effusion or pneumothorax. Cardiac and mediastinal silhouette are within normal limits. No acute osseous abnormalities. IMPRESSION: No focal airspace consolidation. CRITICAL RESULT: No. COMMUNICATION: Per this written report. Drafted by Avila Fontenot MD on 02/13/2025 1:30 PM Final report signed by Avila Fontenot MD on 02/13/2025 1:38 PM Chidi Chapa MD IMG XR PROCEDURES Final Result * (ABNORMAL) Pulmonary function testing (02/05/2025 2:49 PM EDT) [id number] 3.47 2.76 - 4.21 L VYAIRE PFT FVC PRED 3.47 VYAIRE PFT FVC LLN 2.76 VYAIRE PFT FVCPREZSCORE -0.01 VYAIRE PFT FVCPRE%PRED 100 % % VYAIRE PFT FVC PREDAUT [facility] (2011) VYAIRE PFT FVC Z-SCORE -0.01 VYAIRE PFT FEV1 PRE 2.73 2.25 - 3.40 L VYAIRE PFT FEV1 PRED 2.83 VYAIRE PFT FEV1 LLN 2.25 VYAIRE PFT BGX3SNHUVDEBD -0.28 VYAIRE PFT FEV1_Pre%Pred 96 % % VYAIRE PFT FEV1 PREDAUTH [facility] (2011) VYAIRE PFT FEV1 Z-SCORE -0.28 VYAIRE PFT FEV1/FVC PRE 78.85 70.96 - 91.06 % VYAIRE PFT SCH1STXLSUS 82 VYAIRE PFT BQD2CKHQWK 71 VYAIRE PFT [id number] -0.50 VYAIRE PFT JPY7OERGQG%PRED 96 % % VYAIRE PFT [id number] [facility] (2011) VYAIRE PFT JGP3ZEZHXDBFE -1 VYAIRE PFT EWD31-99% PRE 2.57 1.79 - 4.46 L/s VYAIRE PFT KHY08-77%_Pred 2.99 VYAIRE PFT QSV0477%LLN 1.79 VYAIRE PFT VJM3236%PREZSCORE -0.54 VYAIRE PFT PMP3758%PRE%PRED 86 % % VYAIRE PFT NDO0115[facility] (2011) VYAIRE PFT PEF PRE 5.22 5.10 - 8.39 L/s VYAIRE PFT PEF PRED 6.75 VYAIRE PFT PEF LLN 5.10 VYAIRE PFT PEFPREZSCORE -1.53 VYAIRE PFT PEFPRE%PRED 77 % % VYAIRE PFT PEF [facility] (1998) VYAIRE PFT EMJYUWAAHVAFLXFI2WUR 19.85 16.25 - 25.77 ml/(min* mmHg) VYAIRE PFT DLCOSINGLEBREATH PRED 20.60 VYAIRE PFT DLCOSINGLEBREATH LLN 16.25 VYAIRE PFT DLCOSINGLEBREATH Z-SCORE -0.26 VYAIRE PFT DLCOSINGLEBREATH % PRED 96.4 % VYAIRE PFT DLCOSINGLEBREATH [facility]ED[facility] (2019) VYAIRE PFT DLCOSINGLEBREATH Z-SCORE -0.26 02/05/2025 2:48 PM EDT VYAIRE PFT UYFLCFBYPMEUTQLJT6YP E 19.85 16.25 - 25.77 ml/(min* mmHg) VYAIRE PFT DLCOCSINGLEBREATH PRED 20.60 VYAIRE PFT DLCOCSINGLEBREATH LLN 16.25 VYAIRE PFT DLCOCSINGLEBREATH Z-SCORE -0.26 VYAIRE PFT DLCOCSINGLEBREATH % PRED 96.4 % VYAIRE PFT DLCOCSINGLEBREATH [facility]EDSan [facility] TL[facility] GLI (2019) VYAIRE PFT [id number] 4.60 3.51 - 5.53 ml/(min* mmHg*L) VYAIRE PFT DLCOVAPRED 4.46 VYAIRE PFT DLCOVALLN 3.51 VYAIRE PFT DLCOVAZSCORE 0.22 VYAIRE PFT DLCOVA%PRED 103.0 % VYAIRE PFT DLCOVAPREDAUT Stanojevic TLCO GLI (2019) VYAIRE PFT DLCOVAZSCORE 0.22 02/05/2025 2:48 PM EDT VYAIRE PFT [id number] 4.60 3.51 - 5.53 ml/(min* mmHg*L) VYAIRE PFT DLCOC SB/VA PRED 4.46 VYAIRE PFT DLCOC SB/VA LLN 3.51 VYAIRE PFT DLCOC SB/VA Z-SCORE 0.22 VYAIRE PFT DLCOC SB/VA % PRED 103.0 % VYAIRE PFT DLCOC SB/[facility] Stanojevic TLCO GLI (2019) VYAIRE PFT DLCOC SB/VA Z-SCORE 0.22 02/05 2:48 PM EDT VYAIRE PFT [id number] 4.32 3.84 - 5.55 L VYAIRE PFT VASINGLEBREATH PRED 4.66 VYAIRE PFT VASINGLEBREATH LLN 3.84 VYAIRE PFT VASINGLEBREATH Z-SCORE -0.67 VYAIRE PFT VASINGLEBREATH % PRED 92.6 % VYAIRE PFT VASINGLEBREATH PRED[facility] Stanojevic TLCO GLI (2019) VYAIRE PFT VASINGLEBREATH Z-SCORE -0.67 02/05/2025 2:48 PM EDT VYAIRE PFT [id number] 3.16 2.76 - 4.21 L VYAIRE PFT IVCSINGLEBREATH PRED 3.47 VYAIRE PFT IVCSINGLEBREATH LLN 2.76 VYAIRE PFT IVCSINGLEBREATH Z-SCORE -0.72 VYAIRE PFT IVCSINGLEBREATH % PRED 91.0 % VYAIRE PFT IVCSINGLEBREATH PREDAUT US_Quanjer GLI (2011) VYAIRE PFT JEZ% VCMAX PRE 91.12 % VYAIRE PFT TLC SB PRE 4.45 4.10 - 6.00 L VYAIRE PFT TLCSINGLEBREATH PRED 5.00 VYAIRE PFT TLCSINGLEBREATH LLN 4.10 VYAIRE PFT TLCSINGLEBREATH Z-SCORE -0.99 VYAIRE PFT TLCSINGLEBREATH % PRED 89.0 % VYAIRE PFT TLCSINGLEBREATH [facility]ED[facility] Lung volumes GLI (2019)__ VYAIRE PFT HB PRE 13.40 g(Hb)/dL VYAIRE PFT [id number] 4.34 4.10 - 6.00 L VYAIRE PFT TLCPRED 5.00 VYAIRE PFT TLCLLN 4.10 VYAIRE PFT TLCULN 6.00 VYAIRE PFT TLCZSCORE -1.19 VYAIRE PFT TLC%PRED 86.8 % [facility]AIRE PFT [facility]LCPREDEn[facility] Lung volumes GLI (2019)__ VYAIRE PFT VC0PRE 3.47 2.76 - 4.21 L VYAIRE PFT VCPRED 3.47 VYAIRE PFT VCLLN 2.76 VYAIRE PFT VCULN 4.21 VYAIRE PFT VCZSCORE -0.01 VYAIRE PFT VC%PRED 99.8 % VYAIRE PFT VCPREDAUT US_[facility] GLI (2011) VYAIRE PFT IC0PRE 2.63 1.71 - 3.26 L VYAIRE PFT ICPRED 2.48 VYAIRE PFT ICLLN 1.71 VYAIRE PFT ICULN 3.26 VYAIRE PFT IC Z-SCORE 0.32 VYAIRE PFT IC%PRED 106.1 % VYAIRE PFT ICPREDAUT [facility] Lung volumes GLI (2019)__ VYAIRE PFT [id number] 1.71(A) 1.77 - 3.43 L VYAIRE PFT FRCPLETH PRED 2.50 VYAIRE PFT FRCPLETH LLN 1.77 VYAIRE PFT FRCPLETH ULN 3.43 VYAIRE PFT FRCPLETH Z-SCORE -1.80 VYAIRE PFT FRCPLETH % PRED 68.3 % VYAIRE PFT FRCPLET PREDAUTH [facility] Lung volumes GLI (2019)__ VYAIRE PFT [id number] 0.84 0.52 - 1.94 L VYAIRE PFT ERVPRED 1.12 VYAIRE PFT ERVLLN 0.52 VYAIRE PFT ERVULN 1.94 VYAIRE PFT ERV Z-SCORE -0.70 VYAIRE PFT ERV%PRED 74.6 % VYAIRE PFT ERVPREDAUTH [facility] Lung volumes GLI (2019)__ VYAIRE PFT RV0PRE 0.87 0.73 - 2.02 L VYAIRE PFT RVPRED 1.28 VYAIRE PFT RVLLN 0.73 VYAIRE PFT RVULN 2.02 VYAIRE PFT RVZSCORE -1.16 VYAIRE PFT RV%PRED 68.2 % VYAIRE PFT RVPREDAUT [facility] Lung volumes GLI (2019)__ VYAIRE PFT RV%CDW9QNE 20.13 15.71 - 35.99 % VYAIRE PFT RV%TLCPRED 25 VYAIRE PFT RV%TLCLLN 16 VYAIRE PFT RV%TLCULN 36 VYAIRE PFT RV%TLCZSCORE -0.88 VYAIRE PFT RV%TLC%PRED 79.1 % VYAIRE PFT RV%TLCPREDAUTRegency Hospital Company Lung volumes GLI (2019)__ VYAIRE PFT Anatomical Region Laterality Modality PFT 02/05/2025 2:10 PM EDT Narrative 02/05/2025 4:37 PM EDT Pulmonary Function Testing Report Jillian Hart 44 y.o. underwent pulmonary function testing today at the [facility]. The patient underwent spirometry, lung volumes by body plethysmography, and diffusion capacity testing. All tests were appropriately administered via ATS/ERS criteria. Spirometry: Normal spirometry Lung Volumes: Normal lung volumes. Diffusion Capacity: Diffusion capacity corrected for Hb is normal. Trend: There are no prior studies for comparison. 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
--- OUTSIDE RECORDS SUMMARY | 2025-04-30 08:57 | XMS_ITS | Encounter Summary ---
Author Organization Healthcare Address [address] [id number] Care Team Providers Care Cement Storage Worker Name Role Phone System, Provider Not In MD Primary Care Provider Unavailable Encounter Details Date Type Department Care Team (Late Contact Info) Description 11/20/2024 Orders Only External Location [address] [place] [address] Beverley Medina PA [address] [place] [address] [place] [address] Social History Tobacco Use Types Packs/Day Years Used Date Smoking Tobacco: Never Assessed Comments Unknown Sex and Gender Information Value Date Recorded Sex Assigned at Not on file Legal Sex Female 11:49 AM EDT Gender Identity Not on file Sexual Orientation Not on file documented as of this encounter Plan of Treatment Upcoming Encounters Date Type Department Care Team (Late st Contact Info) Description 05/04/2025 2:30 PM EDT Appointment Cardiac Imaging [address] [place] [phone] documented as of this encounter Procedures Procedure Name Priority Date/Time Associated Diagnosis Comments CT OUTSIDE IMAGES 11/20/2024 1:56 PM EDT documented in this encounter Results * CT OUTSIDE IMAGES (11/20/2024 1:56 PM EDT) Anatomical Region Laterality Modality Computed Tomogra phy 11/20/2024 1:56 PM EDT Beverley ANDRADE IMG CT PROCEDURES Final R esult documented in this encounter Visit Diagnoses Not on filedocumented in this encounter Care Teams Cement Storage Worker Relationship Specialty Start Date End Date System, Provider Not In, [place] [address] PCP - General Family Medicine 12/15/24 documented as of this encounter
--- OUTSIDE RECORDS SUMMARY | 2025-04-30 08:57 | XMS_ITS | Encounter Summary ---
Author Organization Healthcare Address [address] [place] [address] Care Team Providers Care Bullet Swaging Machine Adjuster Name Role Phone System, Provider Not In MD Primary Care Provider Unavailable Encounter Details Date Type Department Care Team (Latest Contact Info) Description 03/24/2025 Travel Social History Tobacco Use Types Packs/Day Years [...] PM EDT Appointment Cardiac Imaging [address] [place] [address] documented as of this encounter Goals Goal [...] documented as of this encounter Care Teams Bullet Swaging Machine Adjuster Relationship Specialty Start Date End Date System, Provider Not In, [place] [address] PCP - General Family Medicine 12/15/24 documented as of this encounter
--- OUTSIDE RECORDS SUMMARY | 2025-04-30 08:58 | XMS_ITS | Encounter Summary ---
Author Organization Healthcare Address [address] [id number] Care Team Providers Care Biological Science Technician Fish Name Role Phone System, Provider Not In MD Primary Care Provider Unavailable Encounter Details Date Type Department Care Team (Late Contact Info) Description 11/17/2024 Orders Only External Location [address] [place] [id number] Beverley Medina PA [address] [place] [address] [place] [address] Social History Tobacco Use Types [...] PM EDT Appointment Cardiac Imaging [address] [place] [phone] documented as of this encounter Procedures Procedure Name Priority Date/Time Associated Diagnosis Comments XR THORACIC OUTSIDE IMAGES 11/17/2024 2:17 PM EDT documented in this encounter Results * XR THORACIC OUTSIDE IMAGES (11/17/2024 2:17 PM EDT) Anatomical Region Laterality Modality Radiographic Becky ging 11/17/2024 2:17 PM EDT Beverley ANDRADE IMG XR PROCEDURES Final R esult documented in this encounter Visit Diagnoses Not on filedocumented in this encounter Care Teams Biological Science Technician Fish Relationship Specialty Start Date End Date System, Provider Not In, [place] [address] PCP - General Family Medicine 12/15/24 documented as of this encounter
--- OUTSIDE RECORDS SUMMARY | 2025-04-30 08:58 | XMS_ITS | Encounter Summary ---
Author Organization Healthcare Address [address] [place] [address] Care Team Providers Care Email Marketer Name Role Phone System, Provider Not In MD Primary Care Provider Unavailable Encounter Details Date Type Department Care Team ([facility] st Contact Info) Description 03/06/2025 Telephone Pav [facility] Head[facility] Neck & Respiratory [address] [facility] [place] [phone] eBto Garner MD [address] [place] [address] Social History Tobacco Use Types [...] on file documented as of this encounter Functional Status * AUDIT-C Score Answer Date of Assessment Author 0 03/12/2025 12:44 PM EDT oCnsuelo Borges * Question Answer Date of Assessment [...] encounter Miscellaneous Notes * Telephone Encounter - Emperatriz Allen - 03/06/2025 9:22 AM EDT Per Pt call to [facility], pt wanting to get in to see Maskey sooner than April based on consult [facility], [facility] and Pt is anxious to move forward with other treatment options. Pt flexible for dates/times, unavailable on 03/17 only. [phone], okay to leave a detailed message regarding appts/addressing concerns and maintain privacy documented in this encounter Plan of Treatment Upcoming Encounters Date Type Department Care Team (Late st Contact Info) Description 05/04/2025 2:30 PM EDT Appointment Cardiac Imaging [address] [place] [address] documented as of this encounter Visit Diagnoses Not on filedocumented in this encounter Additional Health Concerns Assessment Noted Time A fall risk assessment has been complete d for the patient 02/13/2025 1:20 PM EDT A Body Mass Index follow-up plan has been documented for the patient 02/13/2025 1:58 PM EDT documented as of this encounter Care Teams Email Marketer Relationship Specialty Start Date End Date System, Provider Not In, [place] [address] PCP - General Family Medicine 12/15/24 documented as of this encounter
--- OUTSIDE RECORDS SUMMARY | 2025-04-30 08:58 | XMS_ITS | Encounter Summary ---
Author Organization Healthcare Address [address] [place] [address] Care Team Providers Care Garage Helper Name Role Phone System, Provider Not In MD Primary Care Provider Unavailable Encounter Details Date Type Department Care Team (Latest Contact Info) Description 03/12/2025 Travel Social History Tobacco Use Types Packs/Day [...] Consuelo Borges documented as of this encounter Plan of Treatment Upcoming Encounters Date Type Department Care Team (Late st Contact Info) Description 05/04/2025 2:30 PM EDT Appointment Cardiac Imaging [address] [place] [address] documented as of this encounter Goals Goal [...] documented as of this encounter Care Teams Garage Helper Relationship Specialty Start Date End Date System, Provider Not In, [place] [address] PCP - General Family Medicine 12/15/24 documented as of this encounter
--- OUTSIDE RECORDS SUMMARY | 2025-04-30 08:59 | XMS_ITS | Clinical Summary ---
Author Organization [facility] Address [address] [place] [address] [place] [address] Phone Care Team Providers Care Cylinder Block Mechanic Name Role Phone Hailey MARTINEZ MD, Ray Rodriguez Primary Care P rovider Allergies No known active allergies Medications NORGESTIMATE-ETH INYL ESTRADIOL (ORTHO TRI-CYCLEN, 28, ORAL)Indications :Cough,Moderate persistent asthma without complication,Oth er acute recurrent sinusitis Take 1 Tab by mouth daily. Active fluticasone-na nterol (BREO ELLIPTA) 100-25 mcg/dose Inhl Disk with Device Inhale 1 Puff into the lungs daily. Active mometasone (NASONEX) 50 mcg/actuation Nasl [place], Non-AerosolIndic ations:Allergic rhinitis due to pollen, unspecified seasonality,Pers istent cough for 3 weeks or longer 2 Sprays by Nasal route daily. 17 g 12 10/30/2017 Active Active Problems No known active problems Surgical History Surgery Date Site/Laterality Comments CHOLECYSTECTOMY, LAPAROSCOPIC 2004 Family History Medical History Relation Name Comments Hypertension Father Cancer Maternal Grandfather colon C A Cancer Maternal Grandmother lung CA Cancer Paternal Grandmother breast CA Asthma Neg Hx Relation Name Status Comments Brother 1 Alive Brother 2 Alive Daughter Alive Father Alive Maternal Grandfather Maternal Grandmother Mother MVA Paternal Grandmother Social History Tobacco Use Types Packs/Day Years Used Date Smoking Tobacco: Never Smokeless Tobacco: Never Tobacco Cessation:Counseling Given: Yes Alcohol Use Standard Drinks/Week Comments No 0 (1 standard drink = 0.6 oz pur e alcohol) Sexually Active Control Partners Comments Yes Male Comments Unknown Sex and Gender Information Value Date Recorded Sex Assigned at Not on file Legal Sex Female 2:23 PM EDT Gender Identity Not on file Sexual Orientation Not on file Last Filed Vital Signs Vital Sign Reading Time Taken Comments Blood Pressure 122/64 10/30/2017 11:01 AM EDT Pulse 74 10/30/2017 11:01 AM EDT Temperature - - Respiratory Rate - - Oxygen Saturation 94% 10/30/2017 11:01 AM EDT ra @ rest Inhaled Oxygen Concentration - - Weight 95.3 kg (210 lb) 10/30/2017 11:01 AM EDT Height 157.5 cm (5' 2 ) 10/30/2017 11:01 AM EDT Body Mass Index 38.41 10/30/2017 11:01 AM EDT Plan of Treatment Health Maintenance Due Date Last Done Comments Annual Wellness Exam 1985 DTaP/TDaP/Td (1 - Tdap) 2001 Hepatitis B Vaccine (1 of 3 - 19+ 3-dose series) 2001 Cervical Cancer Screening 2003 Pap Smear 2003 HPV/Pap Cotest 2012 Breast Cancer Screening 2022 COVID-19 Vaccine ( - 2024-2 6 season) 2025 Influenza Vaccine (#1) 2025 6 (Declined) Meningococcal B Vaccine Aged Out No l onger eligible based on patient's age to complete this topic Pneumococcal Vaccine 0-49 Aged Out No longer eligible based on patient's age to complete this topic Insurance PENDING S[facility] TO [facility] Care Teams Cylinder Block Mechanic Relationship Specialty Start Date End Date Ray Hart III, MD [address] [place] [phone] PCP - General Family Medicine 04/20/15
--- OUTSIDE RECORDS SUMMARY | 2025-04-30 08:59 | XMS_ITS | Clinical Summary ---
Author Organization [facility] Address [address] [place] [address] Care Team Providers Care Personal Banking Advisor Name Role Phone Cal Allan MD Unavailable Hailey MARTINEZ MD, Ray Rodriguez Primary Care P rovider Allergies Active Allergy Reactions Criticality Noted Date Comments Albuterol Other (See Comments) 02/27/2022 Tremors Medications diazePAM (VALIUM) 5 mg tablet TAKE ONE (1) THE NIGHT BEFORE AND ONE (1) AN HOUR BEFORE APPOINTMENT AND BRING THE REST AT THE APPOINTMENT. 2 Active Advair Diskus 250-50 mcg/dose inhaler INHALE ONE (1) PUFF TWICE DAILY 2 Active fluticasone furoate-vilanter oL (Breo Ellipta) 100-25 mcg/dose Disk with Device Take 1 Puff by inhalation. Active norgestimate-eth inyl estradioL (ORTHO TRI-CYCLEN LO) 0.18/0.215/0.25 mg-25 mcg Tablet Take by mouth daily. 2 Active albuterol (PROVENTIL) 2.5 mg/0.5 mL Solution for Nebulization Take 2.5 mg by inhalation 3 times daily. Active budesonide-glyco pyr-formoterol (Breztri Aerosphere) 160-9-4.8 mcg/actuation HFA Aerosol Inhaler Take 2 Puffs by inhalation 2 times daily. 10.7 g 11 2 Active montelukast (Singulair) 10 mg Tablet Take 1 Tablet (10 mg) by mouth nightly at bedtime. 30 Tablet 11 2 Active Levalbuterol Tartrate (Xopenex) 45 mcg/actuation HFA Aerosol Inhaler Take 2 Puffs by inhalation every 4 hours as needed for Other (enter comment) (SOB, wheezing). 1 Each 11 2 Active levalbuterol (XOPENEX) 0.63 mg/3 mL Solution for Nebulization Take 3 mL (0.63 mg) by inhalation every 4 hours as needed for Other (enter comment) (SOB, wheezing). 48 mL 2 Active fluticasone propionate (FLONASE) 50 mcg/actuation nasal spray [place] 2 Sprays into nose daily. 1 Each 11 2 Active budesonide-glyco pyr-formoterol (Breztri Aerosphere) 160-9-4.8 mcg/actuation HFA Aerosol InhalerIndicatio ns:Severe persistent asthma without complication (CMS/HCC) Take 4.8 mcg by inhalation 2 times daily. 0.0001 g 2 Active predniSONE (DELTASONE) 10 mg tablet Take by mouth. Take 4 tablets x 3 days, Take 3 tablets x 3 days,Take 2 tablets x 3 days, Take 1 tablet x 3 days, Stop taking on day 13. 30 Tablet 2 2 Active Social History Tobacco Use Types Packs/Day Years Used Date Smoking Tobacco: Never Smokeless Tobacco: Never Alcohol Use Standard Drinks/Week Comments Never 0 (1 standard drink = 0.6 oz pur e alcohol) Comments Unknown Sex and Gender Information Value Date Recorded Sex Assigned at Not on file Legal Sex Female 3:24 PM EDT Gender Identity Not on file Sexual Orientation Not on file Last Filed Vital Signs Vital Sign Reading Time Taken Comments Blood Pressure 128/84 05/17/2022 11:56 AM EST Pulse 98 05/17/2022 11:56 AM EST Temperature 37 C (98.6 F) 02/27/2022 10:28 AM EDT Respiratory Rate 16 05/17/2022 11:56 AM EST Oxygen Saturation 98% 05/17/2022 11:56 AM EST Inhaled Oxygen Concentration - - Weight 91.6 kg (202 lb) 05/17/2022 11:56 AM EST Height 157.5 cm (5' 2 ) 05/17/2022 11:56 AM EST Body Mass Index 36.95 05/17/2022 11:56 AM EST Plan of Treatment Health Maintenance Due Date Last Done Comments Lipid Screening 2000 Tetanus Vaccination (Every 10 Years) 2000 Cervical Cancer Screening 2003 HPV Vaccine (1 - 3-dose SCDM series) 2009 Depression Screening 07/09/2024 COVID-19 Vaccine ( season) 2025 Influenza Vaccination (#1) 2025 Insurance Care Teams Personal Banking Advisor Relationship Specialty Start Date End Date Ray Hart III, MD [address] [place] [id number] PCP - General Family Medicine 02/27/22 Cal Allan MD [address] [place] [address] [address] [place] [address] Critical Care Medicine 01/17/22
[2025-04-30 09:03] LABS: Hematocrit 40.8 % (37.0-47.0); Hemoglobin 13.4 g/dL (12.2-16.2); Immature Granulocytes % 0.2 %; Mean Corpuscular HGB Conc 32.8 g/dL (31.8-35.4); Mean Corpuscular Hemoglobin 28.1 pg (27.0-31.2); Mean Corpuscular Volume 85.5 fl (81-99); Nucleated Red Blood Cells % 0 %; Platelet Count 363 K/mm3 (142-424); Red Blood Count 4.77 M/mm3 (4.20-5.40); Red Cell Distribution Width-SD 41.2 fL; White Blood Count 8.8 K/mm3 (4.8-10.8)
[2025-04-30 10:07] LABS: Albumin Level 3.7 g/dl (3.5-5.0); Chloride 104 mmol/L (98-107)
[2025-04-30 10:08] LABS: Potassium 4.1 mmoL/L (3.5-5.1); Sodium 139 mmol/L (136-145)
[2025-04-30 10:10] LABS: Alanine Aminotransferase 24 U/L (12-78); Anion Gap 14.1 mEq/L (5-15); Aspartate Amino Transferase 21 U/L (14-36); Bilirubin,Unconjugated 0.3 mg/dL (0.0-1.1); Blood Urea Nitrogen 9 mg/dl (7-17); Carbon Dioxide 25 mmol/L (22.0-30.0); Creatinine,Serum 0.90 mg/dl (0.52-1.04); Estimated Glomerular Filt Rate 69 ml/min (>60); GFR (African American) 83 ML/MIN (>60); Total Protein,Serum 6.8 g/dl (6.3-8.2)
[2025-04-30 10:11] LABS: Alkaline Phosphatase 90 U/L (38-126); Bilirubin,Direct 0.0 mg/dl (0.0-0.4); Bilirubin,Indirect 0.4 mg/dL (0.0-0.9); Bilirubin,Total 0.4 mg/dl (0.2-1.3); Calcium 8.6 mg/dl (8.4-10.2); Cholesterol 198 mg/dl (140-200); Glucose 109 mg/dl (74-100); HDL Cholesterol 57 mg/dl (40-60); Magnesium 1.9 mg/dl (1.6-2.3); Triglycerides 168 mg/dl (30-150)
[2025-04-30 10:28] LABS: Free T4 (Free Thyroxine) 0.92 ng/dl (0.78-2.19)
[2025-04-30 10:42] LABS: Thyroid Stimulating Hormone 2.91 uIU/mL (0.465-4.68)
[2025-05-07 12:12] LABS: Dopamine, Plasma < 10.0 pg/mL (0.0-36.7); Epinephrine, Plasma 59.7 pg/mL (0.0-55.4); Norepinephrine, Plasma 334 pg/mL (115-524)
== END 2025-04-30 23:59 | disposition home or self-care (01) ==
PROVIDERS: PCP Physician Assistant; Visit Provider Internal Medicine
DX: R07.9 Chest pain, unspecified (principal); R06.02 Shortness of breath; R53.83 Other fatigue; R60.0 Localized edema; J98.09 Other diseases of bronchus, not elsewhere classified
CPT/HCPCS: 36415; 80048; 80061; 80076; 82088; 82384; 83735; 83835; 84439; 84443; 85025; 93306